=== PATIENT | female | born 1960 | race Caucasian/White ===

== ENCOUNTER 2019-09-17 09:00 | Outpatient (CLI) | payer MEDICARE, MEDICAID, SELFPAY | END 2019-09-17 09:01 | disposition home or self-care (01) | LOC: RHEOACUTE 09-24 16:46 | PROVIDERS: Visit Provider Internal Medicine Rheumatology | DX: M05.79 Rheumatoid arthritis with rheumatoid factor of multiple sites without organ or systems involvement (principal) | CPT/HCPCS: 96365; J3262 ==

== ENCOUNTER 2019-10-17 08:38 | Outpatient (CLI) | payer MEDICARE, MEDICAID, SELFPAY ==
[2019-10-17 09:03] VITALS: BP 159/90; PULSE 88; RESP 16; TEMP 36.6; O2SAT 97
[2019-10-17 10:50] VITALS: BP 176/95; PULSE 76; RESP 16; TEMP 36.6; O2SAT 98
== END 2019-10-17 08:39 | disposition home or self-care (01) ==
LOC: RHEOACUTE 08:40
PROVIDERS: Visit Provider Internal Medicine Rheumatology
DX: M05.9 Rheumatoid arthritis with rheumatoid factor, unspecified (principal); Z79.899 Other long term (current) drug therapy; Z11.59 Encounter for screening for other viral diseases; Z11.1 Encounter for screening for respiratory tuberculosis; Z72.89 Other problems related to lifestyle; E11.9 Type 2 diabetes mellitus without complications
CPT/HCPCS: 36415; 80053; 82565; 82728; 83540; 83550; 85007; 85027; 86480; 86704; 86803; 87340; 96365; J3262

== ENCOUNTER → 2019-11-08 10:56 | Outpatient (BNVA) | payer MEDICARE, MEDICAID, SELFPAY | PROVIDERS: Visit Provider Internal Medicine Rheumatology | DX: M05.9 Rheumatoid arthritis with rheumatoid factor, unspecified (principal); Z79.899 Other long term (current) drug therapy; E83.110 Hereditary hemochromatosis; E11.9 Type 2 diabetes mellitus without complications; Z79.84 Long term (current) use of oral hypoglycemic drugs | CPT/HCPCS: 99214 ==

== ENCOUNTER 2019-11-14 08:23 | Outpatient (CLI) | payer MEDICARE, MEDICAID, SELFPAY ==
--- NOTE | 2019-11-14 08:35 | XR_ITS ---
WS: [id number] XR hand RT min 3V* [id number] REASON FOR EXAM: rheumatoid arthritis FINDINGS: A small cyst is seen in the middle proximal fourth phalanx. The remaining phalanges metacarpals and carpals appear to be normal. XR/XR hand RT min 3V* [id number] IMPRESSION: Small benign cyst of the proximal middle fourth phalanx.
--- NOTE | 2019-11-14 08:35 | XR_ITS ---
WS: [id number] XR foot LT min 3V* [id number] REASON FOR EXAM: rheumatoid arthritis FINDINGS: Mild hallux rigidus changes first metatarsal phalangeal joint. A prominent calcaneal spur is seen. There is spurring seen along the anterior aspects of the distal first metatarsal. XR/XR foot LT min 3V* [id number] IMPRESSION: Calcaneal spur Hallux rigidus Spurring off the head of the first metatarsal.
--- NOTE | 2019-11-14 08:35 | XR_ITS ---
WS: [id number] XR hand LT min 3V* [id number] REASON FOR EXAM: rheumatoid arthritis FINDINGS: The phalanges, metacarpals, and carpal bones are all normal. No fractures or destructive ch anges. XR/XR hand LT min 3V* [id number] IMPRESSION: Negative left hand.
--- NOTE | 2019-11-14 08:35 | XR_ITS ---
WS: [id number] XR foot RT min 3V* [id number] REASON FOR EXAM: rheumatoid arthritis FINDINGS: Mild spurring is seen anteriorly between the cuneiforms and the first second metatarsal hea ds. There is a calcaneal spur evident. Small tailor's bunion is seen. The remaining foot was normal. XR/XR foot RT min 3V* [id number] IMPRESSION: Tailors bunion Calcaneal spur Mild degenerate spurring anterior cuneiforms first and second metatarsals.
== END 2019-11-14 08:24 | disposition home or self-care (01) ==
LOC: RADWPI 08:28
PROVIDERS: PCP Nurse Practitioner Family; Visit Provider Internal Medicine Rheumatology
DX: M05.9 Rheumatoid arthritis with rheumatoid factor, unspecified (principal); M85.641 Other cyst of bone, right hand; M21.621 Bunionette of right foot; M77.31 Calcaneal spur, right foot; M77.32 Calcaneal spur, left foot; M20.22 Hallux rigidus, left foot
CPT/HCPCS: 73130; 73630

== ENCOUNTER 2019-11-14 08:56 | Outpatient (CLI) | payer MEDICARE, MEDICAID, SELFPAY ==
[2019-11-14 09:10] VITALS: BP 164/86; PULSE 80; RESP 16; TEMP 36.6; O2SAT 98
[2019-11-14 11:07] VITALS: BP 160/94; PULSE 64; RESP 16; TEMP 36.7
== END 2019-11-14 08:57 | disposition home or self-care (01) ==
LOC: RHEOACUTE 08:56
PROVIDERS: PCP Nurse Practitioner Family; Visit Provider Internal Medicine Rheumatology
DX: M05.79 Rheumatoid arthritis with rheumatoid factor of multiple sites without organ or systems involvement (principal); M05.9 Rheumatoid arthritis with rheumatoid factor, unspecified; M85.641 Other cyst of bone, right hand; M21.621 Bunionette of right foot; M77.31 Calcaneal spur, right foot; M77.32 Calcaneal spur, left foot; M20.20 Hallux rigidus, unspecified foot
CPT/HCPCS: 73130; 73630; 96365; J3262

== ENCOUNTER 2019-12-17 08:55 | Outpatient (CLI) | payer MEDICARE, MEDICAID, SELFPAY ==
[2019-12-17 09:00] VITALS: BP 159/94; PULSE 80; RESP 16; TEMP 36.7; O2SAT 98
[2019-12-17] MEDS: diphenhydrAMINE 25 mg Capsule PO (09:49)
[2019-12-17 11:05] VITALS: BP 189/98; PULSE 76; RESP 16; TEMP 36.8; O2SAT 98
== END 2019-12-17 08:56 | disposition home or self-care (01) ==
LOC: RHEOACUTE 08:57
PROVIDERS: PCP Nurse Practitioner Family; Visit Provider Internal Medicine Rheumatology
DX: M05.79 Rheumatoid arthritis with rheumatoid factor of multiple sites without organ or systems involvement (principal)
CPT/HCPCS: 96365; 96374; J2920; J3262

== ENCOUNTER 2020-01-15 08:49 | Outpatient (CLI) | payer MEDICARE, MEDICAID, SELFPAY ==
[2020-01-15 08:59] VITALS: BP 170/91; PULSE 83; RESP 16; TEMP 36.8; O2SAT 97
[2020-01-15] MEDS: diphenhydrAMINE 25 mg Capsule PO (09:33)
[2020-01-15] MEDS: acetaminophen 325 mg Tablet 975 MG PO (09:33)
[2020-01-15 11:21] VITALS: BP 169/93; PULSE 78; RESP 16; TEMP 36.6; O2SAT 92
== END 2020-01-15 08:50 | disposition home or self-care (01) ==
LOC: RHEOACUTE 08:51
PROVIDERS: PCP Nurse Practitioner Family; Visit Provider Internal Medicine Rheumatology
DX: Z79.899 Other long term (current) drug therapy (principal); M05.79 Rheumatoid arthritis with rheumatoid factor of multiple sites without organ or systems involvement
CPT/HCPCS: 36415; 80076; 82565; 85025; 85651; 86140; 96365; 96374; J2920; J3262

== ENCOUNTER 2020-02-12 09:41 | Outpatient (CLI) | payer MEDICARE, MEDICAID, SELFPAY ==
[2020-02-12 09:50] VITALS: BP 166/82; PULSE 86; RESP 16; TEMP 36.9; O2SAT 94
[2020-02-12] MEDS: acetaminophen 325 mg Tablet 975 MG PO (10:08)
[2020-02-12] MEDS: diphenhydrAMINE 25 mg Capsule PO (10:09)
[2020-02-12 12:00] VITALS: BP 161/90; PULSE 76; RESP 16; TEMP 36.6
== END 2020-02-12 09:42 | disposition home or self-care (01) ==
LOC: RHEOACUTE 09:42
PROVIDERS: PCP Nurse Practitioner Family; Visit Provider Internal Medicine Rheumatology
DX: M05.79 Rheumatoid arthritis with rheumatoid factor of multiple sites without organ or systems involvement (principal); Z79.899 Other long term (current) drug therapy; E83.110 Hereditary hemochromatosis; R74.0 Nonspecific elevation of levels of transaminase and lactic acid dehydrogenase [LDH]; E11.9 Type 2 diabetes mellitus without complications; Z79.84 Long term (current) use of oral hypoglycemic drugs
CPT/HCPCS: 36415; 80076; 82565; 85025; 85651; 86140; 96365; 96374; 99214; J2920; J3262

== ENCOUNTER 2020-02-25 08:29 | Day surgery (SDC) | payer MEDICARE, MEDICAID, SELFPAY ==
[2020-02-22 11:55] VITALS: BMI 37.8
[2020-02-25 08:59] VITALS: BP 166/94; PULSE 85; RESP 18; TEMP 36.2; O2SAT 95
--- NOTE | 2020-02-25 09:17 | ANES.PREANE2 ---
Pre-Anesthetic Assessment Pre-Anesthetic Assessment: Height/Weight: Height 1.75 m Weight 116.12 kg Temp Pulse Resp BP Pulse Ox 97.2 F L 85 18 166/94 95 02/25/20 08:59 02/25/20 08:59 02/25/20 08:59 02/25/20 08:59 02/25/20 08:59 Preop Diagnosis: sc Proposed Procedure: Operation Date: 02/25/20 10:15 Proposed Procedures p Colonoscopy G0121 12.11(Not Applicable) - Edilberto Hdez MD Was Beta Kiara taken within 24 hours: N/A Last intake: Intake Last Liquid Date 02/24/20 Last Liquid Time 22:00 Last Solid Date 02/23/20 Last Solid Time 21:00 Social: Social History: Tobacco and No alcohol Packs per day: quit 2 yrs ago Exam: Pre-Anes Outpt Exam: alert, oriented x 3, clear to auscultation bilaterally and regular rate & rhythm Airway: Submandibular: WNL Cervical ROM: WNL MP: 2 Dentition: False (upper) History/ROS: No significant history except as noted Pulmonary: Pulmonary: None reported CV/HEM: CV/HEM: HTN : : None reported Hepatic: Hepatic: None reported GI: GI: None reported Metabolic: Metabolic: DM, Hyperlipidemia and Thyroid Musc/skel: Musc/skel: Fibromyalgia and RA Anesthetic Plan: ASA status: 3 Anesthesia: Anesthesia Evaluation and MAC Risk of > 500 ml blood loss (7ml/kg in children): No PFSH Anesthesia PFSH: Medical History (Updated 02/21/20 @ 11:40 by Edilberto Hdez MD) Diabetes mellitus Fibromyalgia Hereditary hemochromatosis High risk medication use Immunization counseling Rheumatoid arthritis with rheumatoid factor Transaminitis Surgical History History of cholecystectomy History of hysterectomy Family History Other Cancer Denies family history of Rheumatoid arthritis Lupus Social History Smoking and tobacco status: former smoker Alcohol intake: never History of recent travel: No Data Anesthesia Cardiac Studies: No Data to Display
[2020-02-25] MEDS: sodium chloride 0.9% 1,000 ML 30 ML IV (09:18)
[2020-02-25 09:19] LABS: Glucose Point of Care 188 mg/dL (70-110)
--- NOTE | 2020-02-25 09:39 | W.PM.OPSUD ---
Surgery/Procedure H&P Update DATE OF PROCEDURE: February 25, 2020 DATE H&P PERFORMED: 02/21/20 PREOP DIAGNOSIS: sc PLANNED PROCEDURE: Operation Date: 02/25/20 10:15 Proposed Procedures p Colonoscopy G0121 12.11(Not Applicable) - Edilberto Hdez MD
[2020-02-25 10:00] VITALS: BP 124/67; PULSE 72; RESP 16; TEMP 36.2; O2SAT 96
[2020-02-25 10:10] VITALS: BP 119/70; PULSE 84; RESP 18; O2SAT 99
--- NOTE | 2020-02-25 10:46 | ANE.PACU2 ---
Inpatient post-anesthesia follow up: Airway intact: Yes Vital signs: Temperature 97.1 F Pulse Rate 84 Respiratory Rate 18 Blood Pressure 119/70 Pulse Oximetry 99 Oxygen Delivery Me thod Room Air Oxygen Flow Rate 3 Fraction of Inspir ed Oxygen Hydration adequate: Yes Nausea and vomiting: No Mental status: Baseline
== END 2020-02-25 10:25 | disposition home or self-care (01) ==
PROVIDERS: PCP Nurse Practitioner Family; Visit Provider Internal Medicine
PROC: 0DJD8ZZ Inspection of Lower Intestinal Tract, Via Natural or Artificial Opening Endoscopic (ICD-10-PCS; CPT 45378; principal; 2020-02-25 10:15)
DX: Z12.11 Encounter for screening for malignant neoplasm of colon (principal); K62.1 Rectal polyp; I10 Essential (primary) hypertension; E11.9 Type 2 diabetes mellitus without complications; E78.5 Hyperlipidemia, unspecified; M79.7 Fibromyalgia; M06.9 Rheumatoid arthritis, unspecified; Z87.891 Personal history of nicotine dependence
CPT/HCPCS: 12345; 36416; 45385; 82962; J2704; J7030

== ENCOUNTER 2020-03-11 09:00 | Outpatient (CLI) | payer MEDICARE, MEDICAID, SELFPAY ==
[2020-03-11 09:05] VITALS: BP 143/89; PULSE 86; RESP 16; TEMP 36.8; O2SAT 96
[2020-03-11] MEDS: diphenhydrAMINE 25 mg Capsule PO (09:31)
[2020-03-11] MEDS: acetaminophen 325 mg Tablet 975 MG PO (09:31)
[2020-03-11 11:28] VITALS: BP 161/89; PULSE 71
== END 2020-03-11 09:01 | disposition home or self-care (01) ==
LOC: RHEOACUTE 09:01
PROVIDERS: PCP Nurse Practitioner Family; Visit Provider Internal Medicine Rheumatology
DX: M05.79 Rheumatoid arthritis with rheumatoid factor of multiple sites without organ or systems involvement (principal)
CPT/HCPCS: 96365; 96374; J2920; J3262

== ENCOUNTER 2020-04-01 09:29 | Outpatient (CLI) | payer MEDICARE, MEDICAID, SELFPAY | END 2020-04-01 09:30 | disposition home or self-care (01) | LOC: RHEOACUTE 09:30 | PROVIDERS: PCP Nurse Practitioner Family; Visit Provider Internal Medicine Rheumatology | DX: E83.110 Hereditary hemochromatosis (principal); M05.9 Rheumatoid arthritis with rheumatoid factor, unspecified; Z79.899 Other long term (current) drug therapy; E11.9 Type 2 diabetes mellitus without complications; E78.5 Hyperlipidemia, unspecified; E03.9 Hypothyroidism, unspecified | CPT/HCPCS: 36415; 80053; 80061; 82728; 83036; 83540; 83550; 84439; 84443; 85025 ==

== ENCOUNTER 2020-04-10 08:43 | Outpatient (CLI) | payer MEDICARE, MEDICAID, SELFPAY ==
[2020-04-10 09:08] VITALS: BP 161/92; PULSE 83; RESP 16; TEMP 36.8; O2SAT 97
--- NOTE | 2020-04-10 10:11 | PC.NURSE ---
Copy of recent labs given to pt per request. Reviewed current home med list and copy given to pt.
[2020-04-10 11:20] VITALS: BP 151/92; PULSE 75; RESP 16; O2SAT 96
== END 2020-04-10 08:44 | disposition home or self-care (01) ==
LOC: RHEOACUTE 08:45
PROVIDERS: PCP Nurse Practitioner Family; Visit Provider Internal Medicine Rheumatology
DX: M05.79 Rheumatoid arthritis with rheumatoid factor of multiple sites without organ or systems involvement (principal)
CPT/HCPCS: 36415; 96365; J3262

== ENCOUNTER 2020-04-22 08:37 | Outpatient (CLI) | payer MEDICARE, MEDICAID, SELFPAY ==
--- NOTE | 2020-04-23 06:44 | ONC FU_ITS ---
Dr. Lin Patient Follow-Up Note Patient: Shauna Smith Unit #: [id number]: 1960 Dicatated By: Ian Lin M.D.Date of Visit:Apr 22, 2020 Onc Med Follow-up/Prog Note Chief Complaint: Hemochromatosis. History of Present Illness: This is a 60 year-old woman with hereditary hemochromatosis. I had seen her initially in January 2014 in regard to elevated hemoglobin/hematocrit levels. Her records in [facility] included numerous blood counts between February 2011 and December 2013. All of these had shown borderline high to mildly elevated hemoglobin levels in the range of 15-16 g with hematocrits ranging from 45-48%. Her white blood cell counts had been borderline high and occasionally slightly elevated. Her platelet counts were consistently normal. Her red cell indices had been slightly macrocytic. Her subsequent evaluation included CBC showing hemoglobin 16.1 g with hematocrit 47.5%. The red cell indices were slightly macrocytic. The white blood cell count was normal at 7500 and the platelet count was normal at 166,000. Serum iron studies showed elevated transferrin saturation at 58% with ferritin level also mildly elevated at 473 ng/mL. B12 level was normal at 459 pg/mL. Erythropoietin level was normal at 11 mIU/mL. A JAK2 gene mutation study was negative. I had seen her again in September 2015. A CBC prior to that visit, from 09/26/2015, showed hemoglobin elevated at 17.3 g with hematocrit 52.3%. The red cell indices were mildly macrocytic. The white blood cell count was normal at 8200 and the platelet count was normal at 165,000. Her subsequent evaluation included a repeat erythropoietin level, which was still normal at 11 mIU/mL, and negative studies for the JAK2 V617F mutation and the JAK2 exon 12 mutation. The serum iron studies were again elevated with serum iron 268 mcg/dL and transferrin saturation 63%. The ferritin was elevated at 547 ng/mL. Comprehensive metabolic profile showed normal liver enzymes. An HFE gene analysis showed double heterozygosity for the C282Y and the H63D mutations, consistent with hereditary hemochromatosis. She began on a phlebotomy program in October 2015. Her follow-up laboratory studies on 02/24/2017 included CBC showing hemoglobin 15.2 g with hematocrit 45%. The white blood cell count was 10,000 and the platelet count was 253,000. The serum iron was down to 81 mcg/dL with transferrin saturation 17.6%. Ferritin was down to 13.5 ng/mL compared to 547 ng/mL in September 2015. At that point I did have her stop phlebotomies. As of her follow-up visit on 03/21/2018 her transferrin saturation was back up to 52.6% with serum ferritin 67 ng/mL, and she then restarted phlebotomies. I had seen her again in March. At that point she was having increasing difficulty getting her phlebotomies due to poor peripheral venous access. As such, we were then able to get her approved for a trial of therapy with deferasirox, which she started on 06/15/2018 at 720 mg daily. Her medical history is otherwise significant for longstanding rheumatoid arthritis. She has been on treatment with methotrexate and monthly infusions of Actemra. Her other medical illnesses include fibromyalgia, degenerative disease of the spine, hypothyroidism, and type 2 diabetes. She has a history of smoking for 30 years, although less than a pack of cigarettes daily. She quit smoking in November 2017. INTERIM HISTORY: As of 09/05/2018 her transferrin saturation had decreased to 37.9% and her ferritin level was down to 23.0 ng/mL. Her deferasirox dosage was reduced to 360 mg every other day due to GI intolerance. As of her follow-up visit in March 2019 the ferritin was in target range at 27.0 ng/mL but with serum iron studies showing transferrin saturation slightly elevated at 53%. She continued deferasirox at the same dosage. She is seen for a scheduled visit. She has been feeling good generally. She says her energy could be better, but she has normal activity. ECOG score is 0. Her appetite is good. Her weight is stable. She has no fever, night sweats, or hot flashes. She has no shortness of breath, cough, or chest pain. She reports having occasional pain in the right upper quadrant area. She has no other GI or complaints. She has just mild aches and pains here and there. She does not complain of headache or dizziness. She has no focal neurologic symptoms. Medications: Actemra Intravenous q 30 days, Aspirin 1 (81 mg) Tablet Oral daily, Cymbalta 1 Capsule (of 30 mg) Capsule Delayed Release Particles Oral daily, Folic Acid 1 (1 mg) Tablet Oral daily, Jadenu 1 Tablet (of 360 mg) Oral on Every Other Day, Januvia 1 Tablet Oral daily, Levothyroxine Sodium 1 (125 mcg) Tablet Oral daily, Lovastatin 1 (20 mg) Tablet Oral daily, Lovastatin 1 Tablet (of 10 mg) Oral daily, MetFORMIN HCl 2 Tablet (of 500 mg) Oral b.i.d., TraZODone HCl 1 Tablet (of 50 mg) Oral at bedtime Allergies: Penicillins Review of Systems: Constitutional - She has good energy and activity tolerance. Appetite is good and weight is stable. No fever, night sweats, or hot flashes. ECOG score is 0, ENMT - She has a little sinus congestion/drainage, presumed to be allergy related. No mouth sores. No sore throat or difficulty swallowing, Hematologic/Lymphatic - No abnormal bruising or bleeding, Respiratory - No shortness of breath. No cough. No pleuritic pain or hemoptysis, Cardiovascular - No angina pain. No palpitations, Gastrointestinal - No nausea or vomiting. No heartburn or acid reflux. She has occasional pain in the right upper quadrant area. No diarrhea or constipation. No blood in the stool or black stools, Genitourinary (F) - No dysuria or hematuria. No urinary frequency. No urgency or incontinence, Musculoskeletal - She has just mild aching in the joints, Integumentary - No skin rash, Neurologic - No headache or dizziness. No numbness or tingling. No other focal neurologic symptoms, Psychiatric - No anxiety or depression. No insomnia. Vital Signs: Performed on Apr 22, 2020 08:47 Height - 69.00 in Weight - 256.4 lbs (HIGH) BSA - 2.30 sq.m BMI - 37.86 (HIGH) Temperature - 97.8 F (LOW) Pulse - 82 /min Respiration - 18 /min BP - 147/104 mm(hg) (HIGH) O2 Sat - 99 % Pain - 9 Physical Examination: Constitutional - She looks good generally, Eyes - Sclerae nonicteric. Conjunctivae clear, ENMT - No lesions noted in the oral cavity, Hematologic/Lymphatic - No cervical, clavicular, or axillary adenopathy, Respiratory - Lungs are clear with good air movement bilaterally, Cardiovascular - Heart rhythm is regular. There is no murmur, gallop, or rub noted, Abdomen - Soft. There is mild tenderness in the right upper quadrant. Liver is not palpable, but it appears enlarged by percussion at 3-4 cm below the costal margin. Spleen is not enlarged. There is no abdominal mass or ascites noted and there is no inguinal adenopathy, Extremities - No edema. Pedal pulses are palpable bilaterally, Integumentary - No rashes. No suspicious skin lesions noted, Neurologic - No focal neurologic deficits noted. Lab/Imaging: Her laboratory studies from 04/01/2020 included CBC showing hemoglobin 13.7 g, white blood cell count 4600, and platelet count 191,000. Comprehensive metabolic profile showed normal renal function with BUN 12 and creatinine 0.6 mg/dL. SGOT was slightly elevated at 48/32 U/L with SGPT 85/33 U/L. The alkaline phosphatase and bilirubin levels were normal. The serum iron studies show transferrin saturation 25.6% and the ferritin level was 39 ng/mL. Impression: 1. Patient presented with elevated transferrin saturation and ferritin levels, and she was found to be doubly heterozygous for the C282Y and the H63D mutations, consistent with hereditary hemochromatosis. 2. She has mildly elevated hemoglobin/hematocrit levels. Etiology is uncertain. With her smoking history she may have a component of secondary polycythemia, but this may just be related to hemochromatosis. 3. She has red blood cell macrocytosis which is probably related to the methotrexate. Her other medical illnesses include: 4. Seropositive rheumatoid arthritis. 5. Fibromyalgia syndrome. 6. Degenerative disease of the spine. 7. Compensated hypothyroidism. 8. Vitamin D deficiency. 9. Mild diabetes. 10. Nicotine dependence (cigarettes). She began phlebotomies for the hemochromatosis in October 2015. As of January 2017 her ferritin level and transferrin saturation were both low, and I had her stop phlebotomies. At her follow-up visit in February 2018 her transferrin saturation was back up over 50%. She then restarted phlebotomies. However, by March 2018 she was having increasing difficulty with phlebotomy due to poor peripheral venous access. On 06/15/2018 she began a trial of therapy with deferasirox at 720 mg daily. She was unable to tolerate it at that dosage due to GI side effects. Ultimately she was able to tolerate it adequately at a reduced dosage of 360 mg every other day. With that her transferrin saturation and ferritin levels had come down to target range. As of 04/01/2020 her transferrin saturation and ferritin levels had remained in target range. Her liver enzymes, though, were noted to be mildly elevated, and she has been having intermittent right upper quadrant abdominal pain. This would most likely be due to nonalcoholic hepatic steatosis, as a prior gallbladder ultrasound from 2013 had reported hepatomegaly with diffuse fatty infiltration. Plan: She will continue deferasirox 360 mg every other day. She will be scheduled for CT abdomen/pelvis. She will have further evaluation as indicated. I will otherwise just plan to monitor her lab studies every 3 months and see her for a follow-up visit again in 1 year. Signed By: Ian Lin M.D. <<Signature on File>>
== END 2020-04-22 08:38 | disposition home or self-care (01) ==
LOC: ONCMED 08:39
PROVIDERS: PCP Nurse Practitioner Family; Visit Provider Internal Medicine Medical Oncology
DX: E83.110 Hereditary hemochromatosis (principal); K76.0 Fatty (change of) liver, not elsewhere classified; M05.9 Rheumatoid arthritis with rheumatoid factor, unspecified; M79.7 Fibromyalgia; M47.9 Spondylosis, unspecified; E03.9 Hypothyroidism, unspecified; E55.9 Vitamin D deficiency, unspecified; E11.9 Type 2 diabetes mellitus without complications; F17.210 Nicotine dependence, cigarettes, uncomplicated; Z79.899 Other long term (current) drug therapy
CPT/HCPCS: G0463

== ENCOUNTER 2020-04-29 12:41 | Outpatient (CLI) | payer MEDICARE, MEDICAID, SELFPAY ==
--- NOTE | 2020-04-29 12:52 | CT_ITS ---
WS: [id number] CT ABDOMEN PELVIS TECHNIQUE: Contrast-enhanced CT of the abdomen and pelvis with coronal and sagittal reformatted image s. CLINICAL INFORMATION: RUQ ABD PAIN, ELEVATED LIVER ENZYMES COMPARISON: CT AP 08/2013 DLP: 1213.[address] scans at [facility] use at least one of these dose optimization techniques: automat ed exposure control; mA and/or kV adjustment per patient size (includes targeted exams where dose is matched to clinical indication); or iterative reconstruction. FINDINGS: Mild hepatomegaly. Diffuse fatty infiltration of the liver. Cholecystectomy clips. Normal spleen. Sma ll esophageal hiatal hernia. Lung bases are well aerated. Normal pancreas. Adrenal glands are normal. Small left adrenal adenoma measuring 15 mm. Normal renal parenchymal enhancement. No hydronephrosis. Ureters are decompressed. Normal caliber abdominal aorta. Tiny fat-containing umbilical hernia. Sigmoid diverticulosis. No evidence of acute diverticulitis. Normal lumbar spine. Impression CT/CT abdomen pelvis w con* [id number] IMPRESSION: 1. Mild hepatomegaly with diffuse fatty infiltration. Correlation with liver f unction tests. Right hepatic lobe measures 21 cm craniocaudal. 2. Small esophageal hiatal hernia. 3. Sigmoid diverticulosis. No evidence of acute diverticulitis. 4. No free fluid in the abdomen or pelvis. 5. Tiny fat-containing umbilical hernia. 6. Small left adrenal adenoma measuring 15 mm.
[2020-04-29] MEDS: iohexol 300 mg/mL 50 mL Btl PO (13:42)
[2020-04-29] MEDS: iohexol 300 mg/mL 100 mL Btl IV (14:38)
== END 2020-04-29 12:42 | disposition home or self-care (01) ==
LOC: RADWPI 12:43
PROVIDERS: PCP Nurse Practitioner Family; Visit Provider Internal Medicine Medical Oncology
DX: E83.119 Hemochromatosis, unspecified (principal); R74.8 Abnormal levels of other serum enzymes; R16.0 Hepatomegaly, not elsewhere classified; K76.0 Fatty (change of) liver, not elsewhere classified; K44.9 Diaphragmatic hernia without obstruction or gangrene; K57.30 Diverticulosis of large intestine without perforation or abscess without bleeding; K42.9 Umbilical hernia without obstruction or gangrene; D35.02 Benign neoplasm of left adrenal gland
CPT/HCPCS: 74177; Q9967

== ENCOUNTER 2020-05-08 08:34 | Outpatient (CLI) | payer MEDICARE, MEDICAID, SELFPAY ==
[2020-05-08 08:59] VITALS: BP 138/87; PULSE 79; RESP 16; TEMP 36.6; O2SAT 97
[2020-05-08] MEDS: acetaminophen 325 mg Tablet 975 MG PO (09:20)
[2020-05-08] MEDS: diphenhydrAMINE 25 mg Capsule (09:50)
[2020-05-08 09:51] VITALS: BMI 37.8
[2020-05-08 11:48] VITALS: BP 177/95; PULSE 79; RESP 16; O2SAT 96
== END 2020-05-08 08:35 | disposition home or self-care (01) ==
LOC: RHEOACUTE 08:38
PROVIDERS: PCP Nurse Practitioner Family; Visit Provider Internal Medicine Rheumatology
DX: M05.79 Rheumatoid arthritis with rheumatoid factor of multiple sites without organ or systems involvement (principal)
CPT/HCPCS: 96365; 96375; J2920; J3262

== ENCOUNTER 2020-06-05 08:40 | Outpatient (CLI) | payer MEDICARE, MEDICAID, SELFPAY ==
[2020-06-05 08:55] VITALS: BP 144/85; PULSE 76; RESP 16; TEMP 36.5; O2SAT 96
[2020-06-05 09:00] VITALS: BMI 38.2
[2020-06-05] MEDS: diphenhydrAMINE 25 mg Capsule PO (09:18)
[2020-06-05] MEDS: acetaminophen 325 mg Tablet 975 MG PO (09:18)
--- NOTE | 2020-06-05 10:09 | PC.NURSE ---
0900 Discussed with pt infusions affect immune system and makes her more at risk for infection. Pt verbalized that she was aware and understood.
[2020-06-05 10:54] VITALS: BP 140/84; PULSE 80; RESP 16
== END 2020-06-05 08:41 | disposition home or self-care (01) ==
LOC: RHEOACUTE 08:43
PROVIDERS: PCP Nurse Practitioner Family; Visit Provider Internal Medicine Rheumatology
DX: M05.79 Rheumatoid arthritis with rheumatoid factor of multiple sites without organ or systems involvement (principal)
CPT/HCPCS: 96365; 96375; J2920; J3262

== ENCOUNTER → 2020-06-12 09:38 | Outpatient (BNVA) | payer MEDICARE, MEDICAID, SELFPAY | PROVIDERS: PCP Nurse Practitioner Family | DX: Z23 Encounter for immunization (principal); Z79.899 Other long term (current) drug therapy | CPT/HCPCS: 90471; 96372 ==

== ENCOUNTER 2020-07-09 09:26 | Outpatient (CLI) | payer MEDICARE, MEDICAID, SELFPAY ==
[2020-07-09 10:00] VITALS: BP 180/80; PULSE 87; RESP 18; TEMP 36.4; O2SAT 97
[2020-07-09] MEDS: diphenhydrAMINE 50 mg Capsule 25 MG PO (10:33)
[2020-07-09] MEDS: acetaminophen 325 mg Tablet 975 MG PO (10:34)
[2020-07-09 10:45] VITALS: BMI 37.9
[2020-07-09] MEDS: acetaminophen 500 mg Tablet 1000 MG (10:45)
[2020-07-09] MEDS: diphenhydrAMINE 25 mg Capsule (10:45)
--- NOTE | 2020-07-09 15:06 | PC.NURSE ---
1100 labs obtained with IV start.
== END 2020-07-09 09:27 | disposition home or self-care (01) ==
LOC: RHEOACUTE 09:27
PROVIDERS: PCP Nurse Practitioner Family; Visit Provider Internal Medicine Rheumatology
DX: M05.79 Rheumatoid arthritis with rheumatoid factor of multiple sites without organ or systems involvement (principal); E83.110 Hereditary hemochromatosis; Z79.899 Other long term (current) drug therapy; E11.9 Type 2 diabetes mellitus without complications; R74.01 Elevation of levels of liver transaminase levels; Z79.84 Long term (current) use of oral hypoglycemic drugs
CPT/HCPCS: 80076; 82565; 85025; 85651; 86140; 96365; 96375; 99214; J2920; J3262; Q0163

== ENCOUNTER 2020-08-07 09:03 | Outpatient (CLI) | payer MEDICARE, MEDICAID, SELFPAY ==
[2020-08-07 09:00] VITALS: BP 145/84; PULSE 81; RESP 16; TEMP 36.2; O2SAT 98
[2020-08-07] MEDS: acetaminophen 325 mg Tablet 975 MG PO (09:41)
[2020-08-07] MEDS: diphenhydrAMINE 25 mg Capsule PO (09:42)
--- NOTE | 2020-08-07 10:33 | PC.NURSE ---
0900 Pt had cyst removed 08/06/20. States Dr. Carpio aware of infusion today. Dr. Castillo informed. Ok to proceed with infusion.
--- NOTE | 2020-08-07 10:40 | PC.NURSE ---
0920 IV started. Labs obtained.
[2020-08-07 11:32] VITALS: BP 177/84; PULSE 78; RESP 16; O2SAT 98
== END 2020-08-07 09:04 | disposition home or self-care (01) ==
LOC: RHEOACUTE 09:03
PROVIDERS: PCP Nurse Practitioner Family; Visit Provider Internal Medicine Rheumatology
DX: M05.79 Rheumatoid arthritis with rheumatoid factor of multiple sites without organ or systems involvement (principal); Z51.81 Encounter for therapeutic drug level monitoring; E03.9 Hypothyroidism, unspecified
CPT/HCPCS: 83036; 84439; 84443; 96365; 96375; J2920; J3262

== ENCOUNTER 2020-09-04 08:54 | Outpatient (CLI) | payer MEDICARE, MEDICAID, SELFPAY ==
[2020-09-04 09:00] VITALS: BP 146/96; PULSE 88; RESP 16; TEMP 36.5; O2SAT 97
[2020-09-04] MEDS: diphenhydrAMINE 25 mg Capsule PO (09:27)
[2020-09-04] MEDS: acetaminophen 325 mg Tablet 975 MG PO (09:27)
[2020-09-04 09:58] VITALS: BMI 38.2
[2020-09-04 11:15] VITALS: BP 156/90; PULSE 76; RESP 16; O2SAT 97
== END 2020-09-04 08:55 | disposition home or self-care (01) ==
LOC: RHEOACUTE 08:58
PROVIDERS: PCP Nurse Practitioner Family; Visit Provider Internal Medicine Rheumatology
DX: M05.79 Rheumatoid arthritis with rheumatoid factor of multiple sites without organ or systems involvement (principal)
CPT/HCPCS: 96365; 96375; J2920; J3262

== ENCOUNTER 2020-09-05 07:54 | Outpatient (CLI) | payer MEDICARE, MEDICAID, SELFPAY ==
--- NOTE | 2020-09-05 08:01 | MM_ITS ---
WS: [id number] BILATERAL DIGITAL SCREENING MAMMOGRAM WITH CAD CLINICAL INFORMATION: SCREENING HISTORY: Screening mammogram. No current complaints. COMPARISON: None. TECHNIQUE: Bilateral CC and MLO views. FINDINGS: Fatty-replaced breasts bilaterally. No suspicious focal mass, asymmetry, calcifications, or architecture intern ural distortion. No evidence of malignancy. MM/[place] [id number] IMPRESSION: BI-RADS: 1-Negative FOLLOW UP: 1 Year Follow-up Recommend return to annual screening mammography.
--- NOTE | 2020-09-05 08:39 | CT_ITS ---
WS: [id number] LDCT LUNG CANCER SCREENING HISTORY: HX OF TOBACCO USE TECHNIQUE: Axial imaging performed from the apices to 1 cm below the costophrenic angles. Coronal and sagittal reformats are submitted with axial MIP series. All CT scans at [facility] use at least one of these dose optimization techniques: automated exposure control; mA and/or kV adjustment per patient size (includes targeted exams where dose is matched to clinical indication); or iterativ e reconstruction. DLP: 50.23 mGy.cm DIvol: 1.58 mGy COMPARISON: None available. Diagnostic quality: Satisfactory Lung Nodules: 7 mm subpleural nodule in the RIGHT upper lobe on image 59 of series 3. Solid nodule wi th no spiculation. No additional nodules are identified. Lungs: No abnormality. Heart: Normal size. Moderate coronary artery calcification. Other findings: None. CT/CT lung screening [id number] IMPRESSION: LUNG-RADS: 3S-Probably Benign with Significant Findings FOLLOW UP: 6 Month LDCT OTHER FINDINGS (S MODIFIER): Moderate coronary artery atherosclerosis. Evaluati on by cardiology may be appropriate at this time.
== END 2020-09-05 07:55 | disposition home or self-care (01) ==
PROVIDERS: PCP Nurse Practitioner Family; Visit Provider Family Medicine
DX: Z12.31 Encounter for screening mammogram for malignant neoplasm of breast (principal); Z12.2 Encounter for screening for malignant neoplasm of respiratory organs; Z87.891 Personal history of nicotine dependence; I25.10 Atherosclerotic heart disease of native coronary artery without angina pectoris
CPT/HCPCS: 71271; 77067

== ENCOUNTER 2020-10-02 08:45 | Outpatient (CLI) | payer MEDICARE, MEDICAID, SELFPAY ==
[2020-10-02 09:30] VITALS: BP 141/87; BP 146/82; PULSE 72; PULSE 76; RESP 18; TEMP 36.1; TEMP 36.5; O2SAT 96; O2SAT 97
[2020-10-02] MEDS: acetaminophen 325 mg Tablet 975 MG PO (09:30)
[2020-10-02] MEDS: diphenhydrAMINE 25 mg Capsule PO (09:30)
[2020-10-02 09:53] LABS: Basophils # 0.1 10^3/uL (0.0-0.1); Basophils % 1.4 %; Eosinophils # 0.4 10^3/uL (0.0-0.8); Eosinophils % 6.2 %; Hematocrit 41.4 % (37.0-47.0); Hemoglobin 13.9 g/dL (11.5-15.3); Lymphocytes # 1.7 10^3/uL (0.8-4.8); Lymphocytes % 29.6 %; Mean Corpuscular HGB Conc 33.6 g/dL (30.0-36.0); Mean Corpuscular Volume 95.2 fL (81-99); Mean Platelet Volume 10.1 fL (7.4-10.4); Monocytes # 0.6 10^3/uL (0.2-0.9); Monocytes % 11.2 %; Neutrophils # 2.88 10^3/uL (1.8-7.7); Neutrophils % 51.1 %; Nucleated Red Blood Cells % 0 %; Platelet Count 184 10^3/cmm (130-400); Red Blood Count 4.35 10^6/uL (4.1-5.3); Red Cell Distribution Width 12.1 % (12.1-15.1); White Blood Count 5.6 10^3/uL (4.0-10.0)
[2020-10-02 09:55] LABS: Alanine Aminotransferase 63 U/L (0-33); Aspartate Amino Transferase 34 U/L (0-32); C Reactive Protein 0.3 mg/L (0.0-4.9)
[2020-10-02 10:45] VITALS: BP 141/87; PULSE 72; RESP 18; TEMP 36.1; O2SAT 96
[2020-10-02 10:45] LABS: Erythrocyte Sedimentation Rate 7 mm/hr (0-15)
== END 2020-10-02 08:46 | disposition home or self-care (01) ==
LOC: ONCMED 08:48
PROVIDERS: Internal Medicine Rheumatology; PCP Nurse Practitioner Family; Visit Provider Internal Medicine Medical Oncology
DX: M05.79 Rheumatoid arthritis with rheumatoid factor of multiple sites without organ or systems involvement; E83.110 Hereditary hemochromatosis; D75.1 Secondary polycythemia; M79.7 Fibromyalgia; E03.9 Hypothyroidism, unspecified; E11.9 Type 2 diabetes mellitus without complications; F17.210 Nicotine dependence, cigarettes, uncomplicated
CPT/HCPCS: 82565; 84450; 84460; 85025; 85651; 86140; 96365; 96375; J2920; J3262

== ENCOUNTER 2020-10-22 06:54 | Outpatient (CLI) | payer MEDICARE, MEDICAID, SELFPAY ==
[2020-10-22 06:57] VITALS: BMI 36.8
--- NOTE | 2020-10-22 07:13 | NMCV_ITS ---
NM mitul perf SPECT r/s* [id number] Shauna Smith Age: 60 Gender: F : 1960 Exam Date: 10/22/2020 08:34 Ordering Phys: Brian French MD ([email or web address]) Technologist: JAY Ervin Exam Location: [facility] Indications: CAD STRESS TEST Please see separate stress test report in [facility] for full findings IMAGE PROTOCOL Rest/Stress 1 Exercise Day Radiopharmaceutical Dose (mCi) Administration Site Administered by Rest: Tc-99m 10.6 IV JAY Mcclure Sestamibi Stress:Tc-99m 32.1 IV JAY Mcclure Sestamibi Rest: 22-Oct-2020 60 Discovery 630 Stress: 22-Oct-2020 15 Discovery 630 Radiopharmaceutical was injected at 91 % maximum heart rate. Images obtained in supine and prone position. SPECT RESULTS Technical Quality: Excellent Raw Data Analysis: Breast attenuation Image Corrections: No attenuation or motion correction applied Summed Stress Score: 0 Summed Rest Score: 0 Summed Difference Score: 0 PERFUSION FINDINGS Small area of reduced pressure uptake noted in mid anterior wall on the rest images which improved significantly over stress images suggestive of artifact. Medium-sized area of basal inferior wall on the rest images which improved slightly over the stress images suggestive of artifact FUNCTIONAL RESULTS (calculated via Gated SPECT) Stress Image LV EF (%): 72 Stress EDV (mL):81 TID: 0 Stress ESV (mL):23 Rest Image LV EF (%): 72 FUNCTIONAL FINDINGS: There is normal left ventricular systolic function. IMPRESSIONS Myocardial perfusion imaging is normal low probability for obstructive coronary disease. EKG segment will be documented separately. Brian French MD (Electronically Signed) Final Date: 22 October 2020 19:36 S
--- NOTE | 2020-10-22 07:13 | ECG_ITS ---
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 Baseline heart rate was [89] beats per minute. Baseline blood pressure was [135/81] millimeters of mercury. Target heart rate was 158 beats per minute. Maximum heart rate achieved was 159, which was 100 % of the target heart rate. Maximum blood pressure was 207/90 millimeters of mercury. Total exercise time was 4-minute. Maximum METs achieved was 7.0, maximum VO2 was 24.5. The reason for ending the test was maximum effort. The patient complained of [] during the stress test, which then resolved at the end of the test. ELECTROCARDIOGRAM: BASELINE: Showed sinus rhythm, normal axis, non specific ST-T changes at the baseline noted. [] EXERCISE: At the peak exercise level, [] No significant ST-T changes more than what is present at the baseline noted. [] RECOVERY: During the recovery period, heart rate dropped appropriately. No significant ST-T changes in the recovery suggestive of ischemia noted. [] CONCLUSION: 1. Exercise capacity [poor]. 2. Heart rate response was tachycardic. 3. Blood pressure response was [appropriate]. 4. Symptoms not suggestive of ischemia. 5. Electrocardiogram portion of the stress test was equivocal ischemia. 6. Nuclear scan will be documented separately. Please note that due to poor exercise capacity and under achievement of METs specificity and sensitivity of EKG portion of stress test will be low Electronically Signed On 10-28-2020 17:01:39 METAL FORGER'S ASSISTANT by SHYAM FRENCH [email or web address]
[2020-10-22 09:27] VITALS: BP 155/83; PULSE 95
== END 2020-10-22 06:55 | disposition home or self-care (01) ==
LOC: CDL 06:55
PROVIDERS: PCP Nurse Practitioner Family; Visit Provider Internal Medicine Cardiovascular Disease
DX: I25.10 Atherosclerotic heart disease of native coronary artery without angina pectoris (principal)
CPT/HCPCS: 78452; 93017; A9500

== ENCOUNTER 2020-10-30 08:37 | Outpatient (CLI) | payer MEDICARE, MEDICAID, SELFPAY ==
[2020-10-30 09:00] VITALS: BP 135/82; PULSE 75; RESP 16; TEMP 36.6; O2SAT 97
[2020-10-30] MEDS: acetaminophen 325 mg Tablet 975 MG PO (09:03)
[2020-10-30] MEDS: diphenhydrAMINE 25 mg Capsule PO (09:03)
[2020-10-30 10:57] VITALS: BP 157/89; PULSE 76; RESP 16; TEMP 36.3; O2SAT 98
== END 2020-10-30 08:38 | disposition home or self-care (01) ==
LOC: ONCMED 08:40
PROVIDERS: PCP Nurse Practitioner Family; Visit Provider Internal Medicine Rheumatology
DX: M05.79 Rheumatoid arthritis with rheumatoid factor of multiple sites without organ or systems involvement (principal)
CPT/HCPCS: 96365; 96366; 96375; J2920; J3262

== ENCOUNTER 2020-11-27 08:48 | Outpatient (CLI) | payer MEDICARE, MEDICAID, SELFPAY ==
[2020-11-27] MEDS: acetaminophen 325 mg Tablet 650 MG PO (09:10)
[2020-11-27] MEDS: sodium chloride 0.9% 250 ML 75 ML IV (09:10)
[2020-11-27] MEDS: diphenhydrAMINE 50 mg/mL SDV 1mL 25 MG IV (09:12)
[2020-11-27 09:34] VITALS: BP 138/86; PULSE 74; RESP 16; TEMP 36
[2020-11-27 09:51] LABS: Basophils # 0.1 10^3/uL (0.0-0.1); Basophils % 0.8 %; Eosinophils # 0.3 10^3/uL (0.0-0.8); Eosinophils % 5.1 %; Hematocrit 41.1 % (37.0-47.0); Hemoglobin 13.8 g/dL (11.5-15.3); Lymphocytes # 1.5 10^3/uL (0.8-4.8); Lymphocytes % 25.1 %; Mean Corpuscular HGB Conc 33.6 g/dL (30.0-36.0); Mean Corpuscular Hemoglobin 32.4 pg (28.0-34.0); Mean Corpuscular Volume 96.5 fL (81-99); Mean Platelet Volume 10.4 fL (7.4-10.4); Monocytes # 0.7 10^3/uL (0.2-0.9); Monocytes % 11.2 %; Neutrophils # 3.48 10^3/uL (1.8-7.7); Neutrophils % 57.5 %; Nucleated Red Blood Cells % 0 %; Platelet Count 183 10^3/cmm (130-400); Red Blood Count 4.26 10^6/uL (4.1-5.3); Red Cell Distribution Width 11.9 % (12.1-15.1); White Blood Count 6.1 10^3/uL (4.0-10.0)
[2020-11-27 10:04] LABS: Alanine Aminotransferase 60 U/L (0-33); Albumin Level 4.3 g/dL (3.5-5.2); Alkaline Phosphatase 49 IU/L (35-105); Aspartate Amino Transferase 35 U/L (0-32); C Reactive Protein 0.3 mg/L (0.0-4.9); Globulin 2.1 g/dL (1.3-4.6); Total Bilirubin 0.6 mg/dL (0.15-1.2); Total Protein 6.4 g/dL (6.6-8.7)
[2020-11-27 10:44] VITALS: BP 151/82; PULSE 74; RESP 16; TEMP 36.4; O2SAT 97
== END 2020-11-27 08:49 | disposition home or self-care (01) ==
PROVIDERS: PCP Nurse Practitioner Family; Visit Provider Internal Medicine Rheumatology
DX: M05.79 Rheumatoid arthritis with rheumatoid factor of multiple sites without organ or systems involvement (principal)
CPT/HCPCS: 80076; 82565; 85025; 86140; 96365; 96375; J1200; J2920; J3262; J7050

== ENCOUNTER 2020-12-25 08:53 | Outpatient (CLI) | payer MEDICARE, MEDICAID, SELFPAY ==
[2020-12-25 09:10] VITALS: BP 154/88; PULSE 88; RESP 16; TEMP 36.1; O2SAT 97
[2020-12-25] MEDS: sodium chloride 0.9% 250 ML 999 ML IV (09:20)
[2020-12-25] MEDS: acetaminophen 325 mg Tablet 650 MG PO (09:20)
[2020-12-25] MEDS: diphenhydrAMINE 50 mg/mL SDV 1mL 25 MG IVP (09:27)
[2020-12-25 09:51] LABS: Basophils # 0.1 10^3/uL (0.0-0.1); Basophils % 1.1 %; Eosinophils # 0.3 10^3/uL (0.0-0.8); Eosinophils % 4.6 %; Hematocrit 39.8 % (37.0-47.0); Hemoglobin 13.4 g/dL (11.5-15.3); Lymphocytes # 1.8 10^3/uL (0.8-4.8); Lymphocytes % 28.8 %; Mean Corpuscular HGB Conc 33.7 g/dL (30.0-36.0); Mean Corpuscular Hemoglobin 32.4 pg (28.0-34.0); Mean Corpuscular Volume 96.1 fL (81-99); Mean Platelet Volume 10.5 fL (7.4-10.4); Monocytes # 0.7 10^3/uL (0.2-0.9); Monocytes % 11.5 %; Neutrophils # 3.41 10^3/uL (1.8-7.7); Neutrophils % 53.5 %; Nucleated Red Blood Cells % 0 %; Platelet Count 173 10^3/cmm (130-400); Red Blood Count 4.14 10^6/uL (4.1-5.3); Red Cell Distribution Width 11.9 % (12.1-15.1); White Blood Count 6.4 10^3/uL (4.0-10.0)
[2020-12-25 10:22] LABS: Albumin Level 4.1 g/dL (3.5-5.2)
[2020-12-25 10:30] VITALS: BP 134/79; PULSE 80; RESP 16; TEMP 36.6; O2SAT 97
[2020-12-25 10:32] LABS: Estmated Average Glucose 189; Hemoglobin A1C 8.2 % (4.0-6.0)
[2020-12-25 11:15] LABS: Alanine Aminotransferase 61 U/L (0-33); Alkaline Phosphatase 49 IU/L (35-105); Aspartate Amino Transferase 36 U/L (0-32); Globulin 2.2 g/dL (1.3-4.6); Total Bilirubin 0.4 mg/dL (0.15-1.2); Total Protein 6.3 g/dL (6.6-8.7)
== END 2020-12-25 08:54 | disposition home or self-care (01) ==
PROVIDERS: Family Medicine; PCP Nurse Practitioner Family; Visit Provider Internal Medicine Rheumatology
DX: M05.79 Rheumatoid arthritis with rheumatoid factor of multiple sites without organ or systems involvement (principal); E11.9 Type 2 diabetes mellitus without complications
CPT/HCPCS: 80076; 83036; 85025; 96365; 96375; J1200; J2920; J3262; J7050

== ENCOUNTER 2021-01-22 08:56 | Outpatient (CLI) | payer MEDICARE, MEDICAID, SELFPAY ==
[2021-01-22] MEDS: sodium chloride 0.9% 250 ML IV (09:54)
[2021-01-22] MEDS: acetaminophen 325 mg Tablet 650 MG PO (10:05)
[2021-01-22 10:06] VITALS: BP 141/84; PULSE 78; RESP 16; TEMP 36.6; O2SAT 96
[2021-01-22] MEDS: diphenhydrAMINE 50 mg/mL SDV 1mL 25 MG IVP (10:11)
[2021-01-22 10:39] LABS: Estmated Average Glucose 186; Hemoglobin A1C 8.1 % (4.0-6.0)
[2021-01-22 10:48] LABS: Anion Gap 15.4 (5-19); Blood Urea Nitrogen 10 mg/dL (8-23); Calcium 8.7 mg/dL (8.5-10.5); Carbon Dioxide 24 mmol/L (22-29); Chloride 102 mmol/L (98-107); Glucose 193 mg/dL (65-115); Osmolality Calculated 288 mOsm/kg (285-295); Potassium 4.4 mmol/L (3.5-5.1); Sodium 137 mmol/L (136-145); Thyroid Stimulating Hormone 0.37 uIU/mL (0.27-4.20)
[2021-01-22 11:41] VITALS: BP 168/91; PULSE 75; RESP 18; TEMP 36.6; O2SAT 96
== END 2021-01-22 08:57 | disposition home or self-care (01) ==
PROVIDERS: PCP Nurse Practitioner Family; Visit Provider Internal Medicine Rheumatology
DX: M05.79 Rheumatoid arthritis with rheumatoid factor of multiple sites without organ or systems involvement (principal); E11.9 Type 2 diabetes mellitus without complications
CPT/HCPCS: 80048; 83036; 84443; 96365; 96375; J1200; J2920; J3262; J7050

== ENCOUNTER 2021-02-18 08:42 | Outpatient (CLI) | payer MEDICARE, MEDICAID, SELFPAY ==
[2021-02-18 08:55] VITALS: BP 135/76; PULSE 85; RESP 18; TEMP 35.9; O2SAT 97
[2021-02-18] MEDS: sodium chloride 0.9% 250 ML 75 ML IV (09:22)
[2021-02-18] MEDS: acetaminophen 325 mg Tablet 650 MG PO (09:23)
[2021-02-18] MEDS: diphenhydrAMINE 50 mg/mL SDV 1mL 25 MG IVP (09:25)
[2021-02-18 10:43] VITALS: BP 123/67; PULSE 77; RESP 18; TEMP 36.5; O2SAT 96
== END 2021-02-18 08:43 | disposition home or self-care (01) ==
PROVIDERS: PCP Nurse Practitioner Family; Referring Provider Internal Medicine Rheumatology; Visit Provider Internal Medicine Rheumatology
DX: M05.79 Rheumatoid arthritis with rheumatoid factor of multiple sites without organ or systems involvement (principal)
CPT/HCPCS: 96365; 96375; J1200; J2920; J3262; J7050

== ENCOUNTER 2021-03-06 07:45 | Outpatient (CLI) | payer MEDICARE, MEDICAID, SELFPAY ==
--- NOTE | 2021-03-06 07:52 | CT_ITS ---
WS: [id number] CT CHEST WITHOUT INTRAVENOUS CONTRAST HISTORY: 7 MM NODULE R UPPER LOBE TECHNIQUE: Contiguous 5 mm axial imaging performed on the thorax. Coronal and sagittal reformats are submitted. All CT scans at [facility] use at least one of these dose optimization techniq ues: automated exposure control; mA and/or kV adjustment per patient size (includes targeted exams wh ere dose is matched to clinical indication); or iterative reconstruction. CONTRAST: None DLP: 850.08 mGy.cm COMPARISON: 09/05/2020 Lungs and central airway: Pulmonary hyperexpansion and changes of emphysema. Subpleural nodule in the posterior RIGHT upper lobe image 17 of series 3 is unchanged to 7 mm. There is an additional subpleu ral nodule at the RIGHT apex measuring 3 mm. Pleura: Normal. No pleural effusion. Heart and pericardium: Normal size heart with moderate coronary artery calcifications. Mediastinum and dayanna: No mediastinum or hilar adenopathy. Vessels: Mild atherosclerosis of the aorta. Pulmonary artery size is equal to the aorta. Chest wall and lower neck: No soft tissue masses. Upper abdomen: Prior cholecystectomy. Hepatic steatosis. LEFT adrenal adenoma stable measuring 15 mm. Osseous structures: Negative. CT/CT chest wo con [id number] IMPRESSION: 1. Stable 7 mm nodule posterior RIGHT upper lobe. Additional 3 mm nodule at th e RIGHT apex. Recommend 6-[address] follow-up. 2. Chronic emphysema.I 3. Stable LEFT adrenal adenoma. 4. Prior cholecystectomy.
== END 2021-03-06 07:46 | disposition home or self-care (01) ==
LOC: RAD 07:50
PROVIDERS: PCP Nurse Practitioner Family; Visit Provider Family Medicine
DX: R91.1 Solitary pulmonary nodule (principal); J43.9 Emphysema, unspecified; D35.02 Benign neoplasm of left adrenal gland; Z90.49 Acquired absence of other specified parts of digestive tract
CPT/HCPCS: 71250

== ENCOUNTER 2021-03-19 08:34 | Outpatient (CLI) | payer MEDICARE, MEDICAID, SELFPAY ==
[2021-03-19 08:47] VITALS: BP 142/74; PULSE 78; RESP 18; TEMP 36.3; O2SAT 98
[2021-03-19] MEDS: acetaminophen 325 mg Tablet 650 MG PO (09:13)
[2021-03-19] MEDS: sodium chloride 0.9% 250 ML 75 ML IV (09:16)
[2021-03-19] MEDS: diphenhydrAMINE 50 mg/mL SDV 1mL 25 MG IVP (09:16)
[2021-03-19 09:26] LABS: Basophils # 0.1 10^3/uL (0.0-0.1); Basophils % 1.2 %; Eosinophils # 0.1 10^3/uL (0.0-0.8); Eosinophils % 3.2 %; Hematocrit 37.6 % (37.0-47.0); Hemoglobin 12.7 g/dL (11.5-15.3); Lymphocytes # 1.4 10^3/uL (0.8-4.8); Lymphocytes % 34.4 %; Mean Corpuscular HGB Conc 33.8 g/dL (30.0-36.0); Mean Corpuscular Hemoglobin 32.2 pg (28.0-34.0); Mean Corpuscular Volume 95.2 fL (81-99); Mean Platelet Volume 10.6 fL (7.4-10.4); Monocytes # 0.6 10^3/uL (0.2-0.9); Monocytes % 14.2 %; Neutrophils # 1.87 10^3/uL (1.8-7.7); Neutrophils % 46.8 %; Nucleated Red Blood Cells % 0 %; Platelet Count 172 10^3/cmm (130-400); Red Blood Count 3.95 10^6/uL (4.1-5.3); Red Cell Distribution Width 11.9 % (12.1-15.1)
[2021-03-19 09:53] LABS: Alanine Aminotransferase 72 U/L (0-33); Albumin Level 4.1 g/dL (3.5-5.2); Alkaline Phosphatase 36 IU/L (35-105); Aspartate Amino Transferase 45 U/L (0-32); C Reactive Protein 0.3 mg/L (0.0-4.9); Creatinine Clr Calc Pharmacy 152.2396; Ferritin 45 ng/mL (15-150); Glomerular Filtration Rate 124.6 mL/min (90-130); Iron 99 ug/dL (37-145); Percent Saturation 23.7 % (20-50); Total Bilirubin 0.7 mg/dL (0.15-1.2); Total Iron Binding Capacity 417 mcg/dl; Total Protein 6.1 g/dL (6.6-8.7); Unsaturated Iron Binding 318 ug/dL (112-347)
[2021-03-19 10:37] VITALS: BP 152/79; PULSE 74; RESP 18; TEMP 36.4; O2SAT 95
== END 2021-03-19 08:35 | disposition home or self-care (01) ==
PROVIDERS: PCP Nurse Practitioner Family; Visit Provider Internal Medicine Rheumatology
DX: E83.110 Hereditary hemochromatosis (principal); M05.79 Rheumatoid arthritis with rheumatoid factor of multiple sites without organ or systems involvement
CPT/HCPCS: 36415; 80076; 82565; 82728; 83540; 83550; 85025; 86140; 96365; 96375; J1200; J2920; J3262; J7050

== ENCOUNTER → 2021-03-23 14:22 | Outpatient (BNVA) | payer MEDICARE, MEDICAID, SELFPAY | PROVIDERS: PCP Nurse Practitioner Family; Visit Provider Internal Medicine Rheumatology | DX: M05.9 Rheumatoid arthritis with rheumatoid factor, unspecified (principal); E83.110 Hereditary hemochromatosis; Z79.899 Other long term (current) drug therapy; Z71.89 Other specified counseling; R74.01 Elevation of levels of liver transaminase levels; E11.9 Type 2 diabetes mellitus without complications; Z79.84 Long term (current) use of oral hypoglycemic drugs; Z87.891 Personal history of nicotine dependence | CPT/HCPCS: 99214 ==

== ENCOUNTER 2021-06-24 14:23 | Outpatient (CLI) | payer MEDICARE, MEDICAID, SELFPAY ==
[2021-06-24 15:40] LABS: Basophils # 0.1 10^3/uL (0.0-0.1); Basophils % 1.1 %; Eosinophils # 0.6 10^3/uL (0.0-0.8); Eosinophils % 7.7 %; Hematocrit 41.9 % (37.0-47.0); Hemoglobin 13.9 g/dL (11.5-15.3); Lymphocytes # 2.5 10^3/uL (0.8-4.8); Lymphocytes % 31.2 %; Mean Corpuscular HGB Conc 33.2 g/dL (30.0-36.0); Mean Corpuscular Hemoglobin 31.3 pg (28.0-34.0); Mean Corpuscular Volume 94.4 fl (81-99); Mean Platelet Volume 9.9 fL (7.4-10.4); Monocytes % 12.8 %; Neutrophils # 3.75 10^3/uL (1.8-7.7); Neutrophils % 47.1 %; Nucleated Red Blood Cells % 0 %; Platelet Count 188 10^3/cmm (130-400); Red Blood Count 4.44 10^6/uL (4.1-5.3)
[2021-06-24 15:49] LABS: Estmated Average Glucose 128; Hemoglobin A1C 6.1 % (4.0-6.0)
[2021-06-24 16:08] LABS: Alanine Aminotransferase 32 U/L (0-33); Albumin Level 4.2 g/dL (3.5-5.2); Alkaline Phosphatase 45 IU/L (35-105); Aspartate Amino Transferase 23 U/L (0-32); Blood Urea Nitrogen 12 mg/dL (8-23); C Reactive Protein 0.3 mg/L (0.0-4.9); Calcium 9.6 mg/dL (8.5-10.5); Carbon Dioxide 24 mmol/L (22-29); Chol HDL Ratio 4.15 mg/dL (0.0-4.40); Cholesterol 191 mg/dL (0-200); Free T4 Free Thyroxine 1.44 ng/dL (0.82-1.77); Globulin 2.6 g/dL (1.3-4.6); Glomerular Filtration Rate 124.6 mL/min (90-130); Glucose 105 mg/dL (65-115); HDL Cholesterol 46 mg/dL (60-100); LDL Cholesterol Calculated 115 mg/dL (50-129); Thyroid Stimulating Hormone 0.13 uIU/mL (0.27-4.20); Total Bilirubin 0.4 mg/dL (0.15-1.2); Total Protein 6.8 g/dL (6.6-8.7); Triglycerides 151 mg/dL (0-150)
[2021-06-24 17:11] LABS: Ferritin 26 ng/mL (15-150); Iron 106 ug/dL (37-145); Percent Saturation 23.7 % (20-50); Total Iron Binding Capacity 446 mcg/dl; Unsaturated Iron Binding 340 ug/dL (112-347)
[2021-06-24 17:12] LABS: Chloride 99 mmol/L (98-107); Osmolality Calculated 280 mOsm/kg (285-295); Sodium 135 mmol/L (136-145)
[2021-06-24 17:13] LABS: Anion Gap 16.3 (5-19); Potassium 4.3 mmol/L (3.5-5.1)
--- NOTE | 2021-06-28 10:33 | ONC FU_ITS ---
Dr. Lin Patient Follow-Up Note Patient: Shauna Smith Unit #: [id number]: 1960 Dicatated By: Ian Lin M.D.Date of Visit:Jun 24, 2021 Onc Med Follow-up/Prog Note Chief Complaint: Hemochromatosis. History of Present Illness: This is a 61 year-old woman with hereditary hemochromatosis. I had seen her initially in January 2014 in regard to elevated hemoglobin/hematocrit levels. Her records in [facility] included numerous blood counts between February 2011 and December 2013. All of these had shown borderline high to mildly elevated hemoglobin levels in the range of 15-16 g with hematocrits ranging from 45-48%. Her white blood cell counts had been borderline high and occasionally slightly elevated. Her platelet counts were consistently normal. Her red cell indices had been slightly macrocytic. Her subsequent evaluation included CBC showing hemoglobin 16.1 g with hematocrit 47.5%. The red cell indices were slightly macrocytic. The white blood cell count was normal at 7500 and the platelet count was normal at 166,000. Serum iron studies showed elevated transferrin saturation at 58% with ferritin level also mildly elevated at 473 ng/mL. B12 level was normal at 459 pg/mL. Erythropoietin level was normal at 11 mIU/mL. A JAK2 gene mutation study was negative. I had seen her again in September 2015. A CBC prior to that visit, from 09/26/2015, showed hemoglobin elevated at 17.3 g with hematocrit 52.3%. The red cell indices were mildly macrocytic. The white blood cell count was normal at 8200 and the platelet count was normal at 165,000. Her subsequent evaluation included a repeat erythropoietin level, which was still normal at 11 mIU/mL, and negative studies for the JAK2 V617F mutation and the JAK2 exon 12 mutation. The serum iron studies were again elevated with serum iron 268 mcg/dL and transferrin saturation 63%. The ferritin was elevated at 547 ng/mL. Comprehensive metabolic profile showed normal liver enzymes. An HFE gene analysis showed double heterozygosity for the C282Y and the H63D mutations, consistent with hereditary hemochromatosis. She began on a phlebotomy program in October 2015. Her follow-up laboratory studies on 02/24/2017 included CBC showing hemoglobin 15.2 g with hematocrit 45%. The white blood cell count was 10,000 and the platelet count was 253,000. The serum iron was down to 81 mcg/dL with transferrin saturation 17.6%. Ferritin was down to 13.5 ng/mL compared to 547 ng/mL in September 2015. At that point I did have her stop phlebotomies. As of her follow-up visit on 03/21/2018 her transferrin saturation was back up to 52.6% with serum ferritin 67 ng/mL, and she then restarted phlebotomies. I had seen her again in March. At that point she was having increasing difficulty getting her phlebotomies due to poor peripheral venous access. As such, we were then able to get her approved for a trial of therapy with deferasirox, which she started on 06/15/2018 at 720 mg daily. Her medical history is otherwise significant for longstanding rheumatoid arthritis. She has been on treatment with methotrexate and monthly infusions of Actemra. Her other medical illnesses include fibromyalgia, degenerative disease of the spine, hypothyroidism, and type 2 diabetes. She has a history of smoking for 30 years, although less than a pack of cigarettes daily. She quit smoking in November 2017. INTERIM HISTORY: As of 09/05/2018 her transferrin saturation had decreased to 37.9% and her ferritin level was down to 23.0 ng/mL. Her deferasirox dosage was reduced to 360 mg every other day due to GI intolerance. As of her follow-up visit in March 2019 the ferritin was in target range at 27.0 ng/mL but with serum iron studies showing transferrin saturation slightly elevated at 53%. She continued deferasirox at the same dosage. Her repeat serum iron studies on 04/01/2020 showed transferrin saturation down to 25.6% with ferritin in target range at 39 ng/mL. She is seen for a scheduled visit. She has continued taking deferasirox, which she tolerates pretty well taken every other day. She says her energy could be better. She is able to do light work. Her ECOG score is 1. She has good appetite. She has no fever or night sweats. She has not had sore mouth or throat. She has no shortness of breath, cough, or chest pain. She currently has no GI or complaints. In particular, she has not been having diarrhea. She has joint pain, but that depends a lot on the weather. She does not complain of headache or dizziness and she has no focal neurologic symptoms. Medications: Actemra Intravenous q 30 days, Aspirin 1 (81 mg) Tablet Oral daily, Cymbalta 1 Capsule (of 30 mg) Capsule Delayed Release Particles Oral daily, Folic Acid 1 (1 mg) Tablet Oral daily, Jadenu 1 Tablet (of 360 mg) Oral on Every Other Day, Januvia 1 Tablet Oral daily, Levothyroxine Sodium 1 (125 mcg) Tablet Oral daily, Lovastatin 1 (20 mg) Tablet Oral daily, Lovastatin 1 Tablet (of 10 mg) Oral daily, MetFORMIN HCl 2 Tablet (of 500 mg) Oral b.i.d., TraZODone HCl 1 Tablet (of 50 mg) Oral at bedtime Allergies: Penicillins Vital Signs: Performed on Jun 24, 2021 14:58 Height - 69.00 in Weight - 231 lbs (LOW) BSA - 2.20 sq.m BMI - 34.11 (HIGH) Temperature - 96.4 F (LOW) Pulse - 90 /min Respiration - 18 /min BP - 177/83 mm(hg) (HIGH) O2 Sat - 96 % Pain - 4 Fatigue - 6 Physical Examination: Constitutional - She looks good generally, Eyes - Sclerae nonicteric. Conjunctivae clear, ENMT - No lesions noted in the oral cavity, Hematologic/Lymphatic - No cervical, clavicular, or axillary adenopathy, Respiratory - Lungs are clear with good air movement bilaterally, Cardiovascular - Heart rhythm is regular. There is no murmur, gallop, or rub noted, Abdomen - Mildly distended. Liver and spleen do not appear enlarged. There is no abdominal mass or ascites noted and there is no inguinal adenopathy, Extremities - No edema, Neurologic - No focal neurologic deficits noted. Lab/Imaging: Test performed on Jun 24, 2021 15:20 Cholesterol, Total 191 mg/dL Ferritin 26 ng/mL Iron 106 mcg/dL Sodium 135 mmol/L T4, Free 1.44 ng/dL TSH 0.13 uIU/mL Iron Binding Capacity (TIBC) 446 mcg/dl Potassium 4.3 mmol/L Triglycerides 151 mg/dL % Iron Saturation 23.7 % Chloride 99 mmol/L LDL Cholesterol 115 mg/dL CO2 24 mmol/L UIBC 340 mcg/dL Anion Gap 16.3 HDL Cholesterol 46 mg/dL BUN 12 mg/dL Cholesterol/HDL Ratio 4.15 mg/dL Creatinine 0.5 mg/dL LDL / HDL Ratio 2.50 RATIO Cr Clearance (Est) 190.5000 mL/min eGFR 124.6 mL/min Glucose 105 mg/dL Osmolality - Calculated 280 mOsm/kg Calcium 9.6 mg/dL Protein, Total 6.8 g/dL Albumin 4.2 g/dL Globulin 2.6 g/dL Bilirubin, Total 0.4 mg/dL ALT (SGPT) 32 U/L AST (SGOT) 23 U/L Alkaline Phosphatase 45 IU/L WBC 8.0 10 3/uL RBC 4.44 10 6/uL HGB 13.9 g/dL HCT 41.9 % MCV 94.4 fl MCH 31.3 pg MCHC 33.2 g/dL RDW 12.0 % Platelet Count 188 10 3/cmm MPV 9.9 fL Neutrophils 3.75 10 3/uL Lymphocytes 2.5 10 3/uL Monocytes 1.0 10 3/uL Eosinophils 0.6 10 3/uL Basophils 0.1 10 3/uL Neutrophil % 47.1 % Lymphocyte % 31.2 % Monocyte % 12.8 % Eosinophil % 7.7 % Basophils % 1.1 % NRBC % 0 % Problem List: 1. Hemochromatosis with HFE gene analysis showing double heterozygosity for the C282Y and the H63D mutations. 2. She has mildly elevated hemoglobin/hematocrit levels. Etiology is uncertain. With her smoking history she may have a component of secondary polycythemia, but this may just be related to hemochromatosis. 3. She has red blood cell macrocytosis which is probably related to the methotrexate. 4. Seropositive rheumatoid arthritis. 5. Fibromyalgia syndrome. 6. Degenerative disease of the spine. 7. Compensated hypothyroidism. 8. Vitamin D deficiency. 9. Mild diabetes. 10. Nicotine dependence (cigarettes). Problems Addressed with this Encounter and Plan: Patient presented with elevated transferrin saturation and ferritin levels, and she was found to be doubly heterozygous for the C282Y and the H63D mutations, consistent with hereditary hemochromatosis. She began phlebotomies for the hemochromatosis in October 2015. As of January 2017 her ferritin level and transferrin saturation were both low, and I had her stop phlebotomies. At her follow-up visit in February 2018 her transferrin saturation was back up over 50%. She then restarted phlebotomies. However, by March 2018 she was having increasing difficulty with phlebotomy due to poor peripheral venous access. On 06/15/2018 she began a trial of therapy with deferasirox at 720 mg daily. She was unable to tolerate it at that dosage due to GI side effects. Ultimately she was able to tolerate it adequately at a reduced dosage of 360 mg every other day. With that her transferrin saturation and ferritin levels have come down to target range. At this she appears stable clinically. Her transferrin saturation and serum ferritin remain in target range. She will continue deferasirox 360 mg every other day. Her laboratory studies can be repeated again in 6 months. I will see her for a follow-up visit again in 1 year. Signed By: Ian Lin M.D. <<Signature on File>>
== END 2021-06-24 14:24 | disposition home or self-care (01) ==
PROVIDERS: PCP Nurse Practitioner Family; Visit Provider Internal Medicine Medical Oncology
DX: E83.110 Hereditary hemochromatosis (principal); D75.9 Disease of blood and blood-forming organs, unspecified; R79.89 Other specified abnormal findings of blood chemistry; F17.210 Nicotine dependence, cigarettes, uncomplicated; E55.9 Vitamin D deficiency, unspecified; M06.9 Rheumatoid arthritis, unspecified; M79.7 Fibromyalgia
CPT/HCPCS: 36415; 80053; 80061; 82728; 83036; 83540; 83550; 84439; 84443; 85025; 86140; 99214

== ENCOUNTER → 2021-06-30 08:32 | Outpatient (BNVA) | payer MEDICARE, MEDICAID, SELFPAY | PROVIDERS: PCP Nurse Practitioner Family; Visit Provider Internal Medicine Rheumatology | DX: M05.9 Rheumatoid arthritis with rheumatoid factor, unspecified (principal); E83.110 Hereditary hemochromatosis; M18.11 Unilateral primary osteoarthritis of first carpometacarpal joint, right hand; Z79.899 Other long term (current) drug therapy; E11.9 Type 2 diabetes mellitus without complications; Z79.84 Long term (current) use of oral hypoglycemic drugs; R74.01 Elevation of levels of liver transaminase levels; Z71.89 Other specified counseling | CPT/HCPCS: 99214 ==

== ENCOUNTER 2021-09-08 08:34 | Outpatient (CLI) | payer MEDICARE, MEDICAID, SELFPAY ==
--- NOTE | 2021-09-08 09:12 | CT_ITS ---
WS: [email or web address] LDCT LUNG CANCER SCREENING TECHNIQUE: Noncontrast CT of the chest with coronal and sagittal reformatted images. CLINICAL INFORMATION: HX OF TOBACCO USE COMPARISON: CT chest 03/06/2021 and 09/05/2020 DLP: 102.24 mGy.cm DIvol: 1.58 mGy,1.[address] scans at [facility] use at least one of these dose optimization techniques: automat ed exposure control; mA and/or kV adjustment per patient size (includes targeted exams where dose is matched to clinical indication); or iterative reconstruction. FINDINGS: Stable 7 mm subpleural nodule right upper lobe posteriorly. Additional 3 mm subpleural nodule right u pper lobe laterally also unchanged. Recommend 12 month follow-up. No other suspicious pulmonary opacities. No acute pulmonary infiltrates. Aortic calcification. Ragland ry calcification. No mediastinal or hilar lymphadenopathy. No axillary lymphadenopathy. Right adrenal gland is normal. 16 mm left adrenal adenoma is stable. Cholecystectomy clips. Normal GE junction. CT/CT lung screening [id number] IMPRESSION: LUNG-RADS: 2-Benign Appearance or Behavior FOLLOW UP: 12 Month: Continue annual screening with LDCT
== END 2021-09-08 08:35 | disposition home or self-care (01) ==
LOC: RAD 08:45
PROVIDERS: PCP Nurse Practitioner Family; Visit Provider Family Medicine
DX: Z12.2 Encounter for screening for malignant neoplasm of respiratory organs (principal); Z87.891 Personal history of nicotine dependence
CPT/HCPCS: 71271

== ENCOUNTER → 2021-10-29 09:14 | Outpatient (BNVA) | payer MEDICARE, MEDICAID, SELFPAY | PROVIDERS: PCP Nurse Practitioner Family; Visit Provider Internal Medicine Rheumatology | DX: M05.79 Rheumatoid arthritis with rheumatoid factor of multiple sites without organ or systems involvement (principal); Z79.899 Other long term (current) drug therapy; E83.110 Hereditary hemochromatosis; M18.9 Osteoarthritis of first carpometacarpal joint, unspecified; E11.9 Type 2 diabetes mellitus without complications; Z79.84 Long term (current) use of oral hypoglycemic drugs; R74.01 Elevation of levels of liver transaminase levels; Z71.89 Other specified counseling | CPT/HCPCS: 99214 ==

== ENCOUNTER 2021-12-28 12:01 | Oncology outpatient (recurring) (ONCR) | payer MEDICARE, MEDICAID, SELFPAY ==
[2021-12-28 12:43] LABS: Basophils # 0.1 10^3/uL (0.0-0.1); Basophils % 1.2 %; Eosinophils # 0.3 10^3/uL (0.0-0.8); Eosinophils % 4.6 %; Hematocrit 40.5 % (37.0-47.0); Hemoglobin 13.2 g/dL (11.5-15.3); Lymphocytes % 33.3 %; Mean Corpuscular HGB Conc 32.6 g/dL (30.0-36.0); Mean Corpuscular Hemoglobin 30.1 pg (28.0-34.0); Mean Corpuscular Volume 92.3 fl (81-99); Mean Platelet Volume 9.9 fL (7.4-10.4); Monocytes # 0.8 10^3/uL (0.2-0.9); Monocytes % 13.8 %; Neutrophils # 2.85 10^3/uL (1.8-7.7); Neutrophils % 46.9 %; Nucleated Red Blood Cells % 0 %; Platelet Count 191 10^3/cmm (130-400); Red Blood Count 4.39 10^6/uL (4.1-5.3); Red Cell Distribution Width 12.7 % (12.1-15.1); White Blood Count 6.1 10^3/uL (4.0-10.0)
[2021-12-28 13:00] LABS: Alanine Aminotransferase 37 U/L (0-33); Albumin Level 4.3 g/dL (3.5-5.2); Alkaline Phosphatase 46 IU/L (35-105); Aspartate Amino Transferase 25 U/L (0-32); Blood Urea Nitrogen 16 mg/dL (8-23); Calcium 9.9 mg/dL (8.5-10.5); Carbon Dioxide 22 mmol/L (22-29); Chloride 99 mmol/L (98-107); Globulin 2.8 g/dL (1.3-4.6); Glomerular Filtration Rate 84.5 mL/min (90-130); Glucose 109 mg/dL (65-115); Osmolality Calculated 282 mOsm/kg (285-295); Sodium 135 mmol/L (136-145); Total Bilirubin 0.4 mg/dL (0.15-1.2); Total Protein 7.1 g/dL (6.6-8.7)
[2021-12-28 13:02] LABS: Anion Gap 18.4 (5-19); Potassium 4.4 mmol/L (3.5-5.1)
[2021-12-28 13:10] LABS: Chol HDL Ratio 4.32 mg/dL (0.0-4.40); Cholesterol 203 mg/dL (0-200); Ferritin 19 ng/mL (15-150); HDL Cholesterol 47 mg/dL (60-100); Iron 77 ug/dL (37-145); LDL Cholesterol Calculated 108 mg/dL (50-129); Percent Saturation 17.7 % (20-50); Thyroid Stimulating Hormone 2.33 uIU/mL (0.27-4.20); Total Iron Binding Capacity 435 mcg/dl; Triglycerides 239 mg/dL (0-150); Unsaturated Iron Binding 358 ug/dL (112-347)
[2021-12-29 07:57] LABS: T4 Total 7.4 mcg/dL (5.1-11.9)
== END 2022-01-26 23:59 | disposition home or self-care (01) ==
PROVIDERS: Internal Medicine Rheumatology; PCP Nurse Practitioner Family; Visit Provider Internal Medicine Medical Oncology
DX: E83.110 Hereditary hemochromatosis (principal)
CPT/HCPCS: 80053; 80061; 82248; 82728; 83540; 83550; 84436; 84443; 85025; 86140

== ENCOUNTER 2021-12-30 10:05 | Outpatient (CLI) | payer MEDICARE, MEDICAID, SELFPAY ==
--- NOTE | 2021-12-30 10:22 | XRR_ITS ---
PROCEDURE INFORMATION: Exam: XR Right Knee Exam date and time: 12/30/2021 10:24 AM Age: 61 years old Clinical indication: Pain; Knee; Right; Additional info: R knee joint pain TECHNIQUE: Imaging protocol: XR Right knee. Views: 3 views. COMPARISON: CR XR foot RT min 3V* [id number] 11/14/2019 8:42 AM FINDINGS: Bones/joints: Normal. Soft tissues: Normal. XR/XR knee RT 4V [id number] IMPRESSION: No acute findings.
== END 2021-12-30 10:06 | disposition home or self-care (01) ==
PROVIDERS: PCP Nurse Practitioner Family; Visit Provider Nurse Practitioner Family
DX: M25.561 Pain in right knee (principal)
CPT/HCPCS: 73564

== ENCOUNTER → 2022-02-16 13:57 | Outpatient (BNVA) | payer MEDICARE, MEDICAID, SELFPAY | PROVIDERS: PCP Nurse Practitioner Family; Visit Provider Internal Medicine Rheumatology | DX: E83.110 Hereditary hemochromatosis (principal); M05.79 Rheumatoid arthritis with rheumatoid factor of multiple sites without organ or systems involvement; M18.11 Unilateral primary osteoarthritis of first carpometacarpal joint, right hand; Z79.899 Other long term (current) drug therapy; E11.9 Type 2 diabetes mellitus without complications; Z79.84 Long term (current) use of oral hypoglycemic drugs; R74.01 Elevation of levels of liver transaminase levels; Z71.89 Other specified counseling | CPT/HCPCS: 99214 ==

== ENCOUNTER 2022-04-14 13:32 | Oncology outpatient (recurring) (ONCR) | payer MEDICARE, MEDICAID, SELFPAY ==
[2022-04-14 13:48] LABS: Basophils # 0.1 10^3/uL (0.0-0.1); Basophils % 0.9 %; Eosinophils # 0.3 10^3/uL (0.0-0.8); Eosinophils % 3.5 %; Hematocrit 44.1 % (37.0-47.0); Hemoglobin 14.5 g/dL (11.5-15.3); Lymphocytes # 2.7 10^3/uL (0.8-4.8); Lymphocytes % 36.4 %; Mean Corpuscular HGB Conc 32.9 g/dL (30.0-36.0); Mean Corpuscular Volume 97.4 fl (81-99); Mean Platelet Volume 9.5 fL (7.4-10.4); Monocytes # 0.8 10^3/uL (0.2-0.9); Monocytes % 11.2 %; Neutrophils # 3.59 10^3/uL (1.8-7.7); Neutrophils % 47.7 %; Nucleated Red Blood Cells % 0 %; Platelet Count 157 10^3/cmm (130-400); Red Blood Count 4.53 10^6/uL (4.1-5.3); Red Cell Distribution Width 12.7 % (12.1-15.1); White Blood Count 7.5 10^3/uL (4.0-10.0)
[2022-04-14 14:18] LABS: Alanine Aminotransferase 54 U/L (0-33); Albumin Level 4.6 g/dL (3.5-5.2); Alkaline Phosphatase 42 U/L (35-105); Anion Gap 15.7 (5-19); Aspartate Amino Transferase 29 U/L (0-32); Blood Urea Nitrogen 13 mg/dL (8-23); Carbon Dioxide 25 mmol/L (22-29); Chloride 101 mmol/L (98-107); Ferritin 70 ng/mL (15-150); Globulin 2.1 g/dL (1.3-4.6); Glomerular Filtration Rate 84.2 mL/min (90-130); Glucose 119 mg/dL (65-115); Iron 203 ug/dL (37-145); Osmolality Calculated 285 mOsm/kg (285-295); Percent Saturation 60.5 % (20-50); Potassium 4.7 mmol/L (3.5-5.1); Sodium 137 mmol/L (136-145); Total Bilirubin 0.3 mg/dL (0.15-1.2); Total Iron Binding Capacity 335 mcg/dl; Total Protein 6.7 g/dL (6.6-8.7); Unsaturated Iron Binding 132 ug/dL (112-347)
== END 2022-04-28 23:59 | disposition home or self-care (01) ==
PROVIDERS: PCP Nurse Practitioner Family; Visit Provider Internal Medicine Medical Oncology
DX: E83.110 Hereditary hemochromatosis (principal)
CPT/HCPCS: 36415; 80053; 82728; 83540; 83550; 85025

== ENCOUNTER → 2022-05-17 09:27 | Outpatient (BNVA) | payer MEDICARE, MEDICAID, SELFPAY | PROVIDERS: PCP Nurse Practitioner Family; Visit Provider Internal Medicine Rheumatology | DX: M05.79 Rheumatoid arthritis with rheumatoid factor of multiple sites without organ or systems involvement (principal); Z79.899 Other long term (current) drug therapy; Z71.89 Other specified counseling; E83.110 Hereditary hemochromatosis; R74.01 Elevation of levels of liver transaminase levels; E11.9 Type 2 diabetes mellitus without complications; Z79.84 Long term (current) use of oral hypoglycemic drugs | CPT/HCPCS: 99214 ==

== ENCOUNTER 2022-07-13 09:02 | Outpatient (CLI) | payer MEDICARE, MEDICAID, SELFPAY ==
[2022-07-13 09:30] LABS: Basophils # 0.1 10^3/uL (0.0-0.1); Basophils % 1.4 %; Eosinophils # 0.3 10^3/uL (0.0-0.8); Eosinophils % 5.4 %; Hematocrit 41.1 % (37.0-47.0); Hemoglobin 13.8 g/dL (11.5-15.3); Lymphocytes # 1.7 10^3/uL (0.8-4.8); Lymphocytes % 33.5 %; Mean Corpuscular HGB Conc 33.6 g/dL (30.0-36.0); Mean Corpuscular Hemoglobin 32.8 pg (28.0-34.0); Mean Corpuscular Volume 97.6 fl (81-99); Monocytes # 0.6 10^3/uL (0.2-0.9); Monocytes % 10.9 %; Neutrophils # 2.49 10^3/uL (1.8-7.7); Neutrophils % 48.4 %; Nucleated Red Blood Cells % 0 %; Platelet Count 169 10^3/cmm (130-400); Red Blood Count 4.21 10^6/uL (4.1-5.3); Red Cell Distribution Width 12.1 % (12.1-15.1); White Blood Count 5.1 10^3/uL (4.0-10.0)
[2022-07-13 09:55] LABS: Alanine Aminotransferase 62 U/L (0-33); Albumin Level 4.2 g/dL (3.5-5.2); Alkaline Phosphatase 42 U/L (35-105); Anion Gap 19.2 (5-19); Aspartate Amino Transferase 37 U/L (0-32); Blood Urea Nitrogen 11 mg/dL (8-23); Calcium 9.5 mg/dL (8.5-10.5); Carbon Dioxide 24 mmol/L (22-29); Chloride 100 mmol/L (98-107); Ferritin 120 ng/mL (15-150); Globulin 2.9 g/dL (1.3-4.6); Glomerular Filtration Rate 84.2 mL/min (90-130); Glucose 188 mg/dL (65-115); Iron 208 ug/dL (37-145); Osmolality Calculated 292 mOsm/kg (285-295); Percent Saturation 58.1 % (20-50); Potassium 4.2 mmol/L (3.5-5.1); Sodium 139 mmol/L (136-145); Total Bilirubin 0.6 mg/dL (0.15-1.2); Total Iron Binding Capacity 358 mcg/dl; Total Protein 7.1 g/dL (6.6-8.7); Unsaturated Iron Binding 150 ug/dL (112-347)
[2022-07-13 09:58] LABS: Estmated Average Glucose 117; Hemoglobin A1C 5.7 % (4.0-6.0)
[2022-07-13 14:49] LABS: Creatinine Urine, Random 79 mg/dL (28-217); Microalbum Creatinine Ratio Ur 13 mg/dL (0-20); Microalbumin Random Urine 1 ug/dL (0-20)
== END 2022-07-13 09:03 | disposition home or self-care (01) ==
LOC: LAB 09:05
PROVIDERS: PCP Nurse Practitioner Family; Visit Provider Nurse Practitioner Family
DX: E11.9 Type 2 diabetes mellitus without complications (principal)
CPT/HCPCS: 36415; 80053; 82044; 82728; 83036; 83540; 83550; 85025

== ENCOUNTER 2022-07-20 13:18 | Oncology outpatient (recurring) (ONCR) | payer MEDICARE, MEDICAID, SELFPAY | END 2022-07-28 23:59 | disposition home or self-care (01) | PROVIDERS: PCP Nurse Practitioner Family; Visit Provider Internal Medicine Medical Oncology | DX: E83.110 Hereditary hemochromatosis (principal); Z79.899 Other long term (current) drug therapy | CPT/HCPCS: 99214 ==

== ENCOUNTER → 2022-09-06 09:01 | Outpatient (BNVA) | payer MEDICARE, MEDICAID, SELFPAY | PROVIDERS: PCP Nurse Practitioner Family; Visit Provider Internal Medicine Rheumatology | DX: M05.79 Rheumatoid arthritis with rheumatoid factor of multiple sites without organ or systems involvement (principal); Z79.899 Other long term (current) drug therapy; Z71.89 Other specified counseling; M18.11 Unilateral primary osteoarthritis of first carpometacarpal joint, right hand; E11.9 Type 2 diabetes mellitus without complications; R74.01 Elevation of levels of liver transaminase levels; Z79.84 Long term (current) use of oral hypoglycemic drugs; E83.110 Hereditary hemochromatosis | CPT/HCPCS: 99214 ==

== ENCOUNTER → 2022-10-08 09:59 | Outpatient (BNVA) | payer MEDICARE, MEDICAID, SELFPAY | PROVIDERS: PCP Family Medicine; Visit Provider Internal Medicine | DX: I25.118 Atherosclerotic heart disease of native coronary artery with other forms of angina pectoris (principal); R06.02 Shortness of breath; E11.9 Type 2 diabetes mellitus without complications; Z79.84 Long term (current) use of oral hypoglycemic drugs; M05.9 Rheumatoid arthritis with rheumatoid factor, unspecified | CPT/HCPCS: 99214 ==

== ENCOUNTER 2022-10-25 09:52 | Oncology outpatient (recurring) (ONCR) | payer MEDICARE, MEDICAID, SELFPAY ==
[2022-10-25 10:36] LABS: Basophils # 0.1 10^3/uL (0.0-0.1); Basophils % 0.9 %; Eosinophils # 0.4 10^3/uL (0.0-0.8); Eosinophils % 4.5 %; Hematocrit 43.5 % (37.0-47.0); Hemoglobin 14.4 g/dL (11.5-15.3); Lymphocytes # 2.4 10^3/uL (0.8-4.8); Lymphocytes % 27.2 %; Mean Corpuscular HGB Conc 33.1 g/dL (30.0-36.0); Mean Corpuscular Hemoglobin 31.3 pg (28.0-34.0); Mean Corpuscular Volume 94.6 fl (81-99); Mean Platelet Volume 9.5 fL (7.4-10.4); Monocytes # 0.8 10^3/uL (0.2-0.9); Monocytes % 9.1 %; Neutrophils # 5.02 10^3/uL (1.8-7.7); Nucleated Red Blood Cells % 0 %; Platelet Count 194 10^3/cmm (130-400); Red Cell Distribution Width 12.1 % (12.1-15.1); White Blood Count 8.7 10^3/uL (4.0-10.0)
[2022-10-25 10:52] LABS: Alanine Aminotransferase 32 U/L (0-33); Albumin Level 4.6 g/dL (3.5-5.2); Alkaline Phosphatase 50 U/L (35-105); Anion Gap 14.9 (5-19); Aspartate Amino Transferase 23 U/L (0-32); Blood Urea Nitrogen 11 mg/dL (8-23); Calcium 9.6 mg/dL (8.5-10.5); Carbon Dioxide 26 mmol/L (22-29); Chloride 103 mmol/L (98-107); Ferritin 61 ng/mL (15-150); Globulin 2.4 g/dL (1.3-4.6); Glomerular Filtration Rate 84.2 mL/min (90-130); Glucose 137 mg/dL (65-115); Iron 140 ug/dL (37-145); Osmolality Calculated 290 mOsm/kg (285-295); Percent Saturation 39.6 % (20-50); Potassium 4.9 mmol/L (3.5-5.1); Sodium 139 mmol/L (136-145); Total Bilirubin 0.5 mg/dL (0.15-1.2); Total Iron Binding Capacity 353 mcg/dl; Unsaturated Iron Binding 213 ug/dL (112-347)
== END 2022-10-26 23:59 | disposition home or self-care (01) ==
LOC: ONCMED 09:52
PROVIDERS: PCP Family Medicine; Visit Provider Internal Medicine Medical Oncology
DX: E83.110 Hereditary hemochromatosis (principal)
CPT/HCPCS: 36415; 80053; 82728; 83540; 83550; 85025

== ENCOUNTER 2022-11-04 06:56 | Outpatient (CLI) | payer MEDICARE, MEDICAID, SELFPAY ==
--- NOTE | 2022-11-04 07:15 | USCV_ITS ---
Shauna Smith Age: 62 Gender: F : 1960 Exam Date: 11/04/2022 07:15 Ordering Phys: Shantanu Rainey M.D ([email or web address]) Technologist: TATYANA [place] [facility] [place]: SHORTNESS OF BREATH BP: 130 / 70 HR: 78 Rhythm: Sinus Technical Quality: Suboptimal MEASUREMENTS (Male / Female) Normal Values 2D ECHO LVOT Diameter 2.0 cm LV Ejection Fraction MOD 2C 54.0 % LV Ejection Fraction 2C AL 58.3 % LA Diameter 3.4 cm LA Width 3.2 cm LA Height 5.8 cm RA Width 3.1 cm RA Height 4.3 cm Aorta at Sinotubular Diameter 2.4 cm IVC Diameter 2.1 cm M-MODE Aortic Annulus Diameter 2.7 cm LA Ao Ratio MM 1.1 MV E Point Septal Separation 0.9 cm DOPPLER AV Peak Velocity 135.0 cm/s LVOT Peak Velocity 91.0 cm/s AV Area Cont Eq vti 2.6 cm squared AV Area Cont Eq pk 2.1 cm squared MV Peak Velocity 92.0 cm/s MV Area PHT 3.0 cm squared Mitral E to A Ratio 0.7 MV E' Velocity 37.0 cm/s Mitral E to MV E' Ratio 5.7 Mitral E to LV E' Lateral Ratio 5.7 Mitral E to LV E' Septal Ratio 5.6 TR Peak Velocity 156.2 cm/s TR Peak Gradient 9.8 mmHg TR Mean Velocity 139.3 cm/s TR Mean Gradient 7.8 mmHg TR Velocity Time Integral 49.9 cm TV Peak E Velocity 67.0 cm/s Right Atrial Pressure 3.0 mmHg Pulmonary Artery Systolic Pressu 12.8 mmHg PV Peak Velocity 84.0 cm/s RV Acceleration Time 0.2 s RV Ejection Time 0.4 s RV AcT/ET 0.5 FINDINGS Left Ventricle Normal left ventricular size, systolic function and wall thickness, with no regional wall motion abnormalities. Grade I/IV diastolic dysfunction (abnormal relaxation filling pattern), normal to mildly elevated filling pressures. Left ventricular ejection fraction is estimated at 55 %. Right Ventricle Normal right ventricular size and systolic function. Normal right ventricular systolic function. Right Atrium The right atrium is normal in size. Left Atrium Mildly increased left atrial size. Mitral Valve Structurally normal mitral valve without significant stenosis or prolapse. There is no mitral regurgitation. Aortic Valve Structurally normal aortic valve without significant sclerosis or stenosis. There is no aortic regurgitation. Tricuspid Valve Structurally normal tricuspid valve without significant stenosis or regurgitation. Pulmonary artery systolic pressure is normal. Pulmonic Valve Pulmonic valve not well visualized. Pericardium Normal pericardium without effusion. Aorta Normal ascending aorta dimension. IVC Inferior vena cava not visualized. CONCLUSIONS Normal left ventricular size, systolic function and wall thickness, with no regional wall motion abnormalities. Grade I/IV diastolic dysfunction (abnormal relaxation filling pattern), normal to mildly elevated filling pressures. Left ventricular ejection fraction is estimated at 55 %. Mildly increased left atrial size. There are no prior echocardiogram studies to compare. Dr. Noe Yanez MD (Electronically Signed) Final Date: 04 November 2022 17:47 S
== END 2022-11-04 06:57 | disposition home or self-care (01) ==
LOC: RAD 06:59
PROVIDERS: PCP Family Medicine; Visit Provider Internal Medicine
DX: R06.02 Shortness of breath (principal); I51.7 Cardiomegaly
CPT/HCPCS: 93306

== ENCOUNTER 2022-11-19 10:59 | Outpatient (CLI) | payer MEDICARE, MEDICAID, SELFPAY ==
--- NOTE | 2022-11-19 11:08 | CT_ITS ---
WS: [email or web address] LDCT LUNG CANCER SCREENING TECHNIQUE: Noncontrast CT of the chest with coronal and sagittal reformatted images. CLINICAL INFORMATION: HX OF TOBACCO USE COMPARISON: CT September 08, 2021 DLP: 83.21 mGy.cm DIvol: Mean CTDIvol: 1.60 (mGy) All CT scans at [facility] use at least one of these dose optimization techniques: automat ed exposure control; mA and/or kV adjustment per patient size (includes targeted exams where dose is matched to clinical indication); or iterative reconstruction. FINDINGS: Stable 7 mm subpleural nodule right upper lobe posteriorly. Additional 3 mm subpleural nodule right u pper lobe laterally also unchanged. Small 3 mm opacity LEFT upper lobe. Small subpleural nodule LEFT lower lobe. Recommend 12 month follow-up. No new pulmonary opacities. Aortic calcification. Coronary calcification. No mediastinal or hilar lym phadenopathy. No axillary lymphadenopathy. Right adrenal gland is normal. 16 mm left adrenal adenoma is stable. Cholecystectomy clips. Normal GE junction. CT/CT lung screening [id number] IMPRESSION: LUNG-RADS: 2-Benign Appearance or Behavior FOLLOW UP: 12 Month: Continue annual screening with LDCT
== END 2022-11-19 11:00 | disposition home or self-care (01) ==
LOC: RAD 11:02
PROVIDERS: PCP Family Medicine; Visit Provider Family Medicine
DX: Z12.2 Encounter for screening for malignant neoplasm of respiratory organs (principal); Z87.891 Personal history of nicotine dependence
CPT/HCPCS: 71271

== ENCOUNTER → 2022-12-13 09:15 | Outpatient (BNVA) | payer MEDICARE, MEDICAID, SELFPAY | PROVIDERS: PCP Family Medicine; Visit Provider Internal Medicine Rheumatology | DX: M05.79 Rheumatoid arthritis with rheumatoid factor of multiple sites without organ or systems involvement (principal); Z79.899 Other long term (current) drug therapy; Z71.89 Other specified counseling | CPT/HCPCS: 99214 ==

== ENCOUNTER 2023-01-12 09:30 | Outpatient (CLI) | payer MEDICARE, MEDICAID, SELFPAY ==
[2023-01-12 11:09] LABS: Basophils # 0.1 10^3/uL (0.0-0.1); Basophils % 0.8 %; Eosinophils # 0.3 10^3/uL (0.0-0.8); Eosinophils % 4.4 %; Hemoglobin 13.4 g/dL (11.5-15.3); Lymphocytes # 1.8 10^3/uL (0.8-4.8); Lymphocytes % 29.9 %; Mean Corpuscular HGB Conc 33.5 g/dL (30.0-36.0); Mean Corpuscular Hemoglobin 32.4 pg (28.0-34.0); Mean Corpuscular Volume 96.9 fl (81-99); Mean Platelet Volume 10.5 fL (7.4-10.4); Monocytes # 0.7 10^3/uL (0.2-0.9); Monocytes % 11.3 %; Neutrophils # 3.27 10^3/uL (1.8-7.7); Neutrophils % 53.3 %; Nucleated Red Blood Cells % 0 %; Platelet Count 157 10^3/cmm (130-400); Red Blood Count 4.13 10^6/uL (4.1-5.3); Red Cell Distribution Width 12.2 % (12.1-15.1); White Blood Count 6.1 10^3/uL (4.0-10.0)
[2023-01-12 11:29] LABS: Alanine Aminotransferase 39 U/L (0-33); Albumin Level 4.2 g/dL (3.5-5.2); Alkaline Phosphatase 38 U/L (35-105); Aspartate Amino Transferase 24 U/L (0-32); Blood Urea Nitrogen 15 mg/dL (8-23); Calcium 8.9 mg/dL (8.5-10.5); Carbon Dioxide 22 mmol/L (22-29); Chloride 100 mmol/L (98-107); Ferritin 45 ng/mL (15-150); Globulin 2.4 g/dL (1.3-4.6); Glomerular Filtration Rate 100.6 mL/min (90-130); Glucose 188 mg/dL (65-115); Iron 138 ug/dL (37-145); Osmolality Calculated 288 mOsm/kg (285-295); Percent Saturation 38.5 % (20-50); Sodium 136 mmol/L (136-145); Total Bilirubin 0.4 mg/dL (0.15-1.2); Total Iron Binding Capacity 358 mcg/dl; Total Protein 6.6 g/dL (6.6-8.7); Unsaturated Iron Binding 220 ug/dL (112-347)
[2023-01-12 11:36] LABS: Anion Gap 18.4 (5-19); Potassium 4.4 mmol/L (3.5-5.1)
[2023-01-12 11:40] LABS: Chol HDL Ratio 4.59 mg/dL (0.0-4.40); Cholesterol 225 mg/dL (0-200); HDL Cholesterol 49 mg/dL (60-100); LDL Cholesterol Calculated 126 mg/dL (50-129); LDL HDL Ratio 2.57 RATIO (0.00-3.22); Thyroid Stimulating Hormone 2.89 uIU/mL (0.27-4.20); Triglycerides 251 mg/dL (0-150)
== END 2023-01-12 09:31 | disposition home or self-care (01) ==
PROVIDERS: Nurse Practitioner Family; PCP Family Medicine; Visit Provider Internal Medicine Medical Oncology
DX: E78.5 Hyperlipidemia, unspecified (principal); E83.110 Hereditary hemochromatosis; E03.9 Hypothyroidism, unspecified; I10 Essential (primary) hypertension
CPT/HCPCS: 36415; 80053; 80061; 82728; 83540; 83550; 84443; 85025

== ENCOUNTER 2023-01-19 13:14 | Oncology outpatient (recurring) (ONCR) | payer MEDICARE, MEDICAID, SELFPAY | END 2023-01-26 23:59 | disposition home or self-care (01) | LOC: ONCMED 13:17 | PROVIDERS: PCP Family Medicine; Visit Provider Internal Medicine Medical Oncology | DX: E83.110 Hereditary hemochromatosis (principal); Z79.899 Other long term (current) drug therapy | CPT/HCPCS: 99214 ==

== ENCOUNTER → 2023-03-14 09:19 | Outpatient (BNVA) | payer MEDICARE, MEDICAID, SELFPAY | PROVIDERS: PCP Family Medicine; Visit Provider Internal Medicine Rheumatology | DX: M05.79 Rheumatoid arthritis with rheumatoid factor of multiple sites without organ or systems involvement (principal); Z79.899 Other long term (current) drug therapy; Z71.89 Other specified counseling; M18.11 Unilateral primary osteoarthritis of first carpometacarpal joint, right hand | CPT/HCPCS: 99214 ==

== ENCOUNTER 2023-03-21 08:21 | Outpatient (CLI) | payer MEDICARE, MEDICAID, SELFPAY ==
[2023-03-23 12:19] LABS: Quantiferon Mitogen >10.00 IU/mL; Quantiferon Nil 0.28 IU/mL; Quantiferon Plus TB1 0.09 IU/mL; Quantiferon Plus TB2 0.08 IU/mL; Quantiferon TB Gold NEGATIVE (NEGATIVE)
== END 2023-03-21 08:22 | disposition home or self-care (01) ==
PROVIDERS: PCP Family Medicine; Visit Provider Internal Medicine Rheumatology
DX: Z11.1 Encounter for screening for respiratory tuberculosis (principal)
CPT/HCPCS: 36415; 86480

== ENCOUNTER → 2023-05-17 08:58 | Outpatient (BNVA) | payer MEDICARE, MEDICAID, SELFPAY | PROVIDERS: PCP Family Medicine; Visit Provider Nurse Practitioner Family | DX: L57.0 Actinic keratosis (principal); L81.4 Other melanin hyperpigmentation; D22.5 Melanocytic nevi of trunk; L85.3 Xerosis cutis; L57.8 Other skin changes due to chronic exposure to nonionizing radiation; Z85.828 Personal history of other malignant neoplasm of skin; D48.5 Neoplasm of uncertain behavior of skin | CPT/HCPCS: 17000; 69100; 99213 ==

== ENCOUNTER 2023-06-06 09:31 | Outpatient (CLI) | payer MEDICARE, MEDICAID, SELFPAY ==
[2023-06-06 09:52] LABS: Basophils # 0.1 10^3/uL (0.0-0.1); Eosinophils # 0.4 10^3/uL (0.0-0.8); Eosinophils % 5.1 %; Hematocrit 39.7 % (36-47); Lymphocytes # 1.8 10^3/uL (0.8-4.8); Lymphocytes % 26.2 %; Mean Corpuscular Hemoglobin 31.7 pg (27-33); Mean Corpuscular Volume 96.1 fl (85-98); Mean Platelet Volume 9.7 fL (7.4-10.4); Monocytes # 0.7 10^3/uL (0.2-0.9); Monocytes % 9.5 %; Neutrophils # 3.99 10^3/uL (1.8-7.7); Neutrophils % 58.1 %; Nucleated Red Blood Cells % 0 %; Platelet Count 192 10^3/cmm (157-399); Red Blood Count 4.13 10^6/uL (3.85-5.65); Red Cell Distribution Width 12.1 % (12.1-15.1); White Blood Count 6.87 10^3/uL (3.29-11.43)
[2023-06-06 10:22] LABS: Ferritin 39 ng/mL (15-150); Iron 91 ug/dL (37-145); Percent Saturation 25.8 % (20-50); Total Iron Binding Capacity 352 mcg/dl; Unsaturated Iron Binding 261 ug/dL (112-347)
[2023-06-06 10:23] LABS: Alanine Aminotransferase 60 U/L (0-33); Albumin Level 4.2 g/dL (3.5-5.2); Alkaline Phosphatase 52 U/L (35-105); Anion Gap 13.6 (5-19); Aspartate Amino Transferase 34 U/L (0-32); Blood Urea Nitrogen 13 mg/dL (8-23); Calcium 8.9 mg/dL (8.5-10.5); Carbon Dioxide 26 mmol/L (22-29); Chloride 98 mmol/L (98-107); Globulin 2.4 g/dL (1.3-4.6); Glucose 276 mg/dL (65-115); Osmolality Calculated 286 mOsm/kg (285-295); Potassium 4.6 mmol/L (3.5-5.1); Sodium 133 mmol/L (136-145); Total Bilirubin 0.4 mg/dL (0.15-1.2); Total Protein 6.6 g/dL (6.6-8.7)
== END 2023-06-06 09:32 | disposition home or self-care (01) ==
PROVIDERS: Internal Medicine Medical Oncology; PCP Family Medicine; Visit Provider Internal Medicine Rheumatology
DX: M05.79 Rheumatoid arthritis with rheumatoid factor of multiple sites without organ or systems involvement (principal); Z79.899 Other long term (current) drug therapy; E83.110 Hereditary hemochromatosis
CPT/HCPCS: 36415; 80053; 82248; 82565; 82728; 83540; 83550; 85025; 86140

== ENCOUNTER → 2023-06-13 10:14 | Outpatient (BNVA) | payer MEDICARE, MEDICAID, SELFPAY | PROVIDERS: PCP Family Medicine; Visit Provider Internal Medicine Rheumatology | DX: M05.79 Rheumatoid arthritis with rheumatoid factor of multiple sites without organ or systems involvement (principal); Z79.899 Other long term (current) drug therapy; Z71.89 Other specified counseling; M18.11 Unilateral primary osteoarthritis of first carpometacarpal joint, right hand | CPT/HCPCS: 99214 ==

== ENCOUNTER 2023-07-20 12:05 | Oncology outpatient (recurring) (ONCR) | payer MEDICARE, MEDICAID, SELFPAY | END 2023-07-28 23:59 | disposition home or self-care (01) | PROVIDERS: PCP Family Medicine; Visit Provider Internal Medicine Medical Oncology | DX: E83.110 Hereditary hemochromatosis (principal); Z79.899 Other long term (current) drug therapy | CPT/HCPCS: 99214 ==

== ENCOUNTER 2023-10-07 08:06 | Outpatient (CLI) | payer MEDICARE, MEDICAID, SELFPAY ==
[2023-10-07 08:32] LABS: Basophils # 0.1 10^3/uL (0.0-0.1); Basophils % 0.7 %; Eosinophils # 0.3 10^3/uL (0.0-0.8); Eosinophils % 3.2 %; Lymphocytes # 2.6 10^3/uL (0.8-4.8); Lymphocytes % 26.3 %; Mean Corpuscular HGB Conc 32.7 g/dL (30-55); Mean Corpuscular Hemoglobin 30.7 pg (27-33); Mean Corpuscular Volume 93.8 fl (85-98); Mean Platelet Volume 9.7 fL (7.4-10.4); Monocytes # 1.2 10^3/uL (0.2-0.9); Neutrophils % 57.7 %; Nucleated Red Blood Cells % 0 %; Platelet Count 208 10^3/cmm (157-399); Red Blood Count 4.37 10^6/uL (3.85-5.65); Red Cell Distribution Width 12.7 % (12.1-15.1); White Blood Count 9.72 10^3/uL (3.29-11.43)
[2023-10-07 08:49] LABS: Alanine Aminotransferase 27 U/L (0-33); Albumin Level 4.1 g/dL (3.5-5.2); Alkaline Phosphatase 62 U/L (35-105); Anion Gap 15.5 (5-19); Aspartate Amino Transferase 19 U/L (0-32); Blood Urea Nitrogen 10 mg/dL (8-23); Calcium 9.5 mg/dL (8.5-10.5); Carbon Dioxide 26 mmol/L (22-29); Chloride 99 mmol/L (98-107); Globulin 3.3 g/dL (1.3-4.6); Glucose 152 mg/dL (65-115); Osmolality Calculated 284 mOsm/kg (285-295); Potassium 4.5 mmol/L (3.5-5.1); Sodium 136 mmol/L (136-145); Total Bilirubin 0.3 mg/dL (0.15-1.2); Total Protein 7.4 g/dL (6.6-8.7)
== END 2023-10-07 08:07 | disposition home or self-care (01) ==
LOC: LAB 08:11
PROVIDERS: Absent Provider Nurse Practitioner Family; PCP Family Medicine; Visit Provider Internal Medicine Rheumatology
DX: M05.79 Rheumatoid arthritis with rheumatoid factor of multiple sites without organ or systems involvement (principal); Z79.899 Other long term (current) drug therapy; E83.110 Hereditary hemochromatosis
CPT/HCPCS: 36415; 80053; 82248; 85025; 86140

== ENCOUNTER → 2023-10-17 08:54 | Outpatient (BNVA) | payer MEDICARE, MEDICAID, SELFPAY | PROVIDERS: PCP Family Medicine; Visit Provider Internal Medicine Rheumatology | DX: M05.79 Rheumatoid arthritis with rheumatoid factor of multiple sites without organ or systems involvement (principal); Z79.899 Other long term (current) drug therapy; Z71.89 Other specified counseling; M18.11 Unilateral primary osteoarthritis of first carpometacarpal joint, right hand | CPT/HCPCS: 99214 ==

== ENCOUNTER 2023-11-21 09:33 | Outpatient (CLI) | payer MEDICARE, MEDICAID, SELFPAY ==
--- NOTE | 2023-11-21 09:38 | CT_ITS ---
WS: [email or web address] LDCT LUNG CANCER SCREENING TECHNIQUE: Noncontrast CT of the chest with coronal and sagittal reformatted images. CLINICAL INFORMATION: HX OF TOBACCO USE COMPARISON: CT 11/19/2022 DLP: 107.31 mGy.cm DIvol: Mean CTDIvol: 2.20 (mGy),Mean CTDIvol: 4.20 (mGy) All CT scans at [facility] use at least one of these dose optimization techniques: automat ed exposure control; mA and/or kV adjustment per patient size (includes targeted exams where dose is matched to clinical indication); or iterative reconstruction. FINDINGS: Stable previously described subcentimeter nodules largest 7 mm RIGHT upper lobe posteriorly unchange d. No new suspicious pulmonary parenchymal opacities. Aortic calcification. Coronary calcification. No mediastinal or hilar lymphadenopathy. No axillary ly mphadenopathy. Right adrenal gland is normal. Stable LEFT adrenal adenoma. Cholecystectomy clips. Nor mal GE junction IMPRESSION: CT/CT lung screening [id number] LUNG-RADS: 2-Benign Appearance or Behavior FOLLOW UP: 12 Month: Continue annual screening with LDCT
== END 2023-11-21 09:34 | disposition home or self-care (01) ==
LOC: RAD 09:33
PROVIDERS: PCP Family Medicine; Visit Provider Family Medicine
DX: Z87.891 Personal history of nicotine dependence (principal); Z12.2 Encounter for screening for malignant neoplasm of respiratory organs; R91.8 Other nonspecific abnormal finding of lung field
CPT/HCPCS: 71271

== ENCOUNTER → 2023-12-14 15:11 | Outpatient (BNVA) | payer MEDICARE, MEDICAID, SELFPAY | PROVIDERS: PCP Family Medicine; Visit Provider Internal Medicine | DX: I25.118 Atherosclerotic heart disease of native coronary artery with other forms of angina pectoris (principal); E11.9 Type 2 diabetes mellitus without complications; M05.9 Rheumatoid arthritis with rheumatoid factor, unspecified; Z79.84 Long term (current) use of oral hypoglycemic drugs | CPT/HCPCS: 99214 ==

== ENCOUNTER 2024-01-10 08:21 | Outpatient (CLI) | payer MEDICARE, MEDICAID, SELFPAY ==
[2024-01-10 08:45] LABS: Basophils # 0.1 10^3/uL (0.0-0.1); Basophils % 0.8 %; Eosinophils # 0.4 10^3/uL (0.0-0.8); Eosinophils % 4.4 %; Hematocrit 39.8 % (36-47); Lymphocytes # 2.5 10^3/uL (0.8-4.8); Lymphocytes % 25.7 %; Mean Corpuscular HGB Conc 32.4 g/dL (30-55); Mean Corpuscular Hemoglobin 30.4 pg (27-33); Mean Corpuscular Volume 93.6 fl (85-98); Mean Platelet Volume 9.5 fL (7.4-10.4); Monocytes # 0.9 10^3/uL (0.2-0.9); Monocytes % 9.5 %; Neutrophils # 5.69 10^3/uL (1.8-7.7); Neutrophils % 59.3 %; Nucleated Red Blood Cells % 0 %; Platelet Count 237 10^3/cmm (157-399); Red Blood Count 4.25 10^6/uL (3.85-5.65); Red Cell Distribution Width 12.7 % (12.1-15.1); White Blood Count 9.59 10^3/uL (3.29-11.43)
[2024-01-10 09:04] LABS: Alanine Aminotransferase 17 U/L (0-33); Albumin Level 4.2 g/dL (3.5-5.2); Alkaline Phosphatase 71 U/L (35-105); Anion Gap 15.4 (5-19); Aspartate Amino Transferase 17 U/L (0-32); Blood Urea Nitrogen 12 mg/dL (8-23); Carbon Dioxide 25 mmol/L (22-29); Chloride 101 mmol/L (98-107); Globulin 3.1 g/dL (1.3-4.6); Glucose 172 mg/dL (65-115); Osmolality Calculated 288 mOsm/kg (285-295); Potassium 4.4 mmol/L (3.5-5.1); Sodium 137 mmol/L (136-145); Total Bilirubin 0.4 mg/dL (0.15-1.2); Total Protein 7.3 g/dL (6.6-8.7)
[2024-01-10 09:06] LABS: Alanine Aminotransferase 17 U/L (0-33); Albumin Level 4.3 g/dL (3.5-5.2); Alkaline Phosphatase 74 U/L (35-105); Aspartate Amino Transferase 16 U/L (0-32); Ferritin 18 ng/mL (15-150); Globulin 2.8 g/dL (1.3-4.6); Iron 62 ug/dL (37-145); Percent Saturation 13.7 % (20-50); Total Bilirubin 0.4 mg/dL (0.15-1.2); Total Iron Binding Capacity 451 mcg/dl; Total Protein 7.1 g/dL (6.6-8.7); Unsaturated Iron Binding 389 ug/dL (112-347)
[2024-01-10 09:44] LABS: Estmated Average Glucose 137; Hemoglobin A1C 6.4 % (4.0-6.0)
== END 2024-01-10 08:22 | disposition home or self-care (01) ==
PROVIDERS: Absent Provider Internal Medicine Rheumatology; Family Provider Family Medicine; PCP Family Medicine; Visit Provider Nurse Practitioner Family
DX: M05.79 Rheumatoid arthritis with rheumatoid factor of multiple sites without organ or systems involvement (principal); Z79.899 Other long term (current) drug therapy; E83.110 Hereditary hemochromatosis; E11.9 Type 2 diabetes mellitus without complications
CPT/HCPCS: 36415; 80053; 80076; 82565; 82728; 83036; 83540; 83550; 85025; 86140

== ENCOUNTER 2024-01-18 13:16 | Oncology outpatient (recurring) (ONCR) | payer MEDICARE, MEDICAID, SELFPAY | END 2024-01-27 23:59 | disposition home or self-care (01) | PROVIDERS: Family Provider Family Medicine; PCP Family Medicine; Visit Provider Internal Medicine Medical Oncology | DX: E83.110 Hereditary hemochromatosis (principal); Z79.899 Other long term (current) drug therapy | CPT/HCPCS: 99213 ==

== ENCOUNTER 2024-02-03 12:50 | Oncology outpatient (recurring) (ONCR) | payer MEDICARE, MEDICAID, SELFPAY ==
--- NOTE | 2024-02-03 12:58 | XR_ITS ---
WS: [email or web address] DEXA (DUAL ENERGY X-RAY ABSORPTIOMETRY) Bone mineral density was performed using a [employer] machine. HISTORY: POSTMENOPAUSAL OSTEOPOROSIS COMPARISON: None available. Lumbar spine BMD (L1-L4): 1.100 g/cm2 T score: -0.7 Z score: -0.2 Total hip BMD: Left: 0.948 g/cm2. T score: -0.5 Z score: -0.1 Right: 0.930 g/cm2. T score: -0.6 Z score: -0.2 10 year probability of a major osteoporotic fracture is 11%. XR/XR DEXA axial skeleton* [id number] IMPRESSION: NORMAL BONE MINERAL DENSITY based upon the WHO classification for females.
== END 2024-02-26 23:59 | disposition home or self-care (01) ==
LOC: RAD 12:52 → ONCMED 03-13 07:37
PROVIDERS: Family Provider Family Medicine; PCP Family Medicine; Visit Provider Internal Medicine Medical Oncology
DX: M81.0 Age-related osteoporosis without current pathological fracture
CPT/HCPCS: 77080

== ENCOUNTER → 2024-02-27 10:01 | Outpatient (BNVA) | payer MEDICARE, MEDICAID, SELFPAY | PROVIDERS: Family Provider Family Medicine; PCP Family Medicine; Visit Provider Internal Medicine Rheumatology | DX: M05.79 Rheumatoid arthritis with rheumatoid factor of multiple sites without organ or systems involvement (principal); M18.11 Unilateral primary osteoarthritis of first carpometacarpal joint, right hand; E83.110 Hereditary hemochromatosis; E11.8 Type 2 diabetes mellitus with unspecified complications; Z79.899 Other long term (current) drug therapy; Z71.85 Encounter for immunization safety counseling; Z98.890 Other specified postprocedural states | CPT/HCPCS: 73562; 99214 ==

== ENCOUNTER → 2024-05-17 09:31 | Outpatient (BNVA) | payer MEDICARE, MEDICAID, SELFPAY | PROVIDERS: Family Provider Family Medicine; PCP Family Medicine; Visit Provider Nurse Practitioner Family | DX: D48.5 Neoplasm of uncertain behavior of skin (principal); L81.4 Other melanin hyperpigmentation; D22.5 Melanocytic nevi of trunk; L85.3 Xerosis cutis; L57.8 Other skin changes due to chronic exposure to nonionizing radiation; L57.0 Actinic keratosis; I87.2 Venous insufficiency (chronic) (peripheral); Z85.828 Personal history of other malignant neoplasm of skin | CPT/HCPCS: 11102; 17000; 99213 ==

== ENCOUNTER → 2024-06-08 10:44 | Outpatient (BNVA) | payer MEDICARE, MEDICAID, SELFPAY | PROVIDERS: Family Provider Family Medicine; PCP Family Medicine; Visit Provider Dermatology | DX: D03.62 Melanoma in situ of left upper limb, including shoulder (principal) | CPT/HCPCS: 11603; 12034 ==

== ENCOUNTER 2024-06-19 08:15 | Outpatient (CLI) | payer MEDICARE, MEDICAID, SELFPAY ==
[2024-06-19 09:04] LABS: Basophils # 0.1 10^3/uL (0.0-0.1); Basophils % 1.1 %; Eosinophils # 0.3 10^3/uL (0.0-0.8); Eosinophils % 3.4 %; Hematocrit 39.7 % (36-47); Lymphocytes # 2.4 10^3/uL (0.8-4.8); Lymphocytes % 32.2 %; Mean Corpuscular Hemoglobin 27.9 pg (27-33); Mean Platelet Volume 10.2 fL (7.4-10.4); Monocytes # 0.7 10^3/uL (0.2-0.9); Monocytes % 8.9 %; Neutrophils # 3.99 10^3/uL (1.8-7.7); Neutrophils % 54.3 %; Nucleated Red Blood Cells % 0 %; Platelet Count 262 10^3/cmm (157-399); Red Blood Count 4.41 10^6/uL (3.85-5.65); Red Cell Distribution Width 13.2 % (12.1-15.1); White Blood Count 7.34 10^3/uL (3.29-11.43)
[2024-06-19 09:10] LABS: Estmated Average Glucose 146; Hemoglobin A1C 6.7 % (4.0-6.0)
[2024-06-19 09:14] LABS: Erythrocyte Sedimentation Rate 32 mm/hr (0-15)
[2024-06-19 09:21] LABS: Alanine Aminotransferase 16 U/L (0-33); Albumin Level 4.3 g/dL (3.5-5.2); Alkaline Phosphatase 66 U/L (35-105); Aspartate Amino Transferase 16 U/L (0-32); Globulin 2.7 g/dL (1.3-4.6); Glomerular Filtration Rate 71.8 mL/min (90-130); Iron 49 ug/dL (37-145); Percent Saturation 10.3 % (20-50); Total Bilirubin 0.4 mg/dL (0.15-1.2); Total Iron Binding Capacity 472 mcg/dl; Unsaturated Iron Binding 423 ug/dL (112-347)
[2024-06-19 09:23] LABS: Alanine Aminotransferase 16 U/L (0-33); Albumin Level 4.4 g/dL (3.5-5.2); Alkaline Phosphatase 65 U/L (35-105); Anion Gap 16.5 (5-19); Aspartate Amino Transferase 17 U/L (0-32); Blood Urea Nitrogen 14 mg/dL (8-23); Calcium 9.2 mg/dL (8.5-10.5); Carbon Dioxide 23 mmol/L (22-29); Chloride 102 mmol/L (98-107); Ferritin 11 ng/mL (15-150); Globulin 3.1 g/dL (1.3-4.6); Glomerular Filtration Rate 71.8 mL/min (90-130); Glucose 150 mg/dL (65-115); Osmolality Calculated 287 mOsm/kg (285-295); Potassium 4.5 mmol/L (3.5-5.1); Sodium 137 mmol/L (136-145); Total Bilirubin 0.4 mg/dL (0.15-1.2); Total Protein 7.5 g/dL (6.6-8.7)
[2024-06-19 09:35] LABS: Hepatitis B Core AB, Total Non-Reactive (Nonreactive); Hepatitis B Surface Antigen Non-Reactive (Nonreactive); Hepatitis C Virus Antibody Non-Reactive (Nonreactive)
== END 2024-06-19 08:16 | disposition home or self-care (01) ==
LOC: LAB 08:18
PROVIDERS: Absent Provider Internal Medicine; Family Provider Family Medicine; PCP Family Medicine; Visit Provider Internal Medicine Rheumatology
DX: M05.79 Rheumatoid arthritis with rheumatoid factor of multiple sites without organ or systems involvement (principal); Z79.899 Other long term (current) drug therapy; Z11.59 Encounter for screening for other viral diseases; Z11.1 Encounter for screening for respiratory tuberculosis; E11.9 Type 2 diabetes mellitus without complications; E83.110 Hereditary hemochromatosis
CPT/HCPCS: 36415; 80053; 80076; 82565; 82728; 83036; 83540; 83550; 85025; 85651; 86140; 86480; 86704; 86803; 87340

== ENCOUNTER → 2024-06-21 12:45 | Outpatient (BNVA) | payer MEDICARE, MEDICAID, SELFPAY | PROVIDERS: Family Provider Family Medicine; PCP Family Medicine; Visit Provider Dermatology | DX: D03.62 Melanoma in situ of left upper limb, including shoulder (principal) | CPT/HCPCS: 99213 ==

== ENCOUNTER 2024-07-20 08:52 | Oncology outpatient (recurring) (ONCR) | payer MEDICARE, MEDICAID, SELFPAY | END 2024-07-28 23:59 | disposition home or self-care (01) | PROVIDERS: Family Provider Family Medicine; PCP Family Medicine; Visit Provider Internal Medicine Hematology & Oncology | DX: E83.110 Hereditary hemochromatosis (principal); Z79.899 Other long term (current) drug therapy | CPT/HCPCS: 99213 ==

== ENCOUNTER → 2024-07-24 11:01 | Outpatient (BNVA) | payer MEDICARE, MEDICAID, SELFPAY | PROVIDERS: Family Provider Family Medicine; PCP Family Medicine; Visit Provider Internal Medicine Rheumatology | DX: M05.79 Rheumatoid arthritis with rheumatoid factor of multiple sites without organ or systems involvement (principal); Z79.899 Other long term (current) drug therapy; Z71.89 Other specified counseling; M18.11 Unilateral primary osteoarthritis of first carpometacarpal joint, right hand | CPT/HCPCS: 99214 ==

== ENCOUNTER 2024-08-01 07:53 | Outpatient (CLI) | payer MEDICARE, MEDICAID, SELFPAY ==
--- NOTE | 2024-08-01 07:55 | MM_ITS ---
WS: [email or web address] BILATERAL SCREENING DIGITAL TOMOSYNTHESIS MAMMOGRAM WITH CAD HISTORY: SCREENING COMPARISON: 09/05/2020 Bilateral CC and MLO views with tomosynthesis and synthetic mammography submitted. Computer aided det ection analyzed. Breast composition: There are scattered areas of fibroglandular density. No suspicious masses, microc alcifications or architectural distortion. There are a few scattered benign calcifications in each br east. MM/MM scr BI tomosynthesis [id number] IMPRESSION: BI-RADS: 2 - Benign. FOLLOW UP: 1 Year Follow-up
== END 2024-08-01 07:54 | disposition home or self-care (01) ==
LOC: RAD 07:54
PROVIDERS: Family Provider Family Medicine; PCP Family Medicine; Visit Provider Family Medicine
DX: Z12.31 Encounter for screening mammogram for malignant neoplasm of breast (principal); R92.323 Mammographic fibroglandular density, bilateral breasts; R92.1 Mammographic calcification found on diagnostic imaging of breast
CPT/HCPCS: 77063; 77067

== ENCOUNTER → 2024-09-11 09:50 | Outpatient (BNVA) | payer MEDICARE, MEDICAID, SELFPAY | PROVIDERS: Family Provider Family Medicine; PCP Family Medicine; Visit Provider Nurse Practitioner Family | DX: L81.4 Other melanin hyperpigmentation (principal); D22.5 Melanocytic nevi of trunk; Z85.820 Personal history of malignant melanoma of skin; Z08 Encounter for follow-up examination after completed treatment for malignant neoplasm; Z85.828 Personal history of other malignant neoplasm of skin | CPT/HCPCS: 99213 ==

== ENCOUNTER 2024-10-15 11:04 | Oncology outpatient (recurring) (ONCR) | payer MEDICARE, MEDICAID, SELFPAY ==
[2024-10-08 09:09] LABS: Basophils # 0.1 10^3/uL (0.0-0.1); Basophils % 1.1 %; Eosinophils # 0.3 10^3/uL (0.0-0.8); Eosinophils % 3.7 %; Hematocrit 36.7 % (36-47); Lymphocytes # 2.1 10^3/uL (0.8-4.8); Lymphocytes % 27.6 %; Mean Corpuscular HGB Conc 30.8 g/dL (30-55); Mean Corpuscular Hemoglobin 27.6 pg (27-33); Mean Corpuscular Volume 89.5 fl (85-98); Mean Platelet Volume 9.5 fL (7.4-10.4); Monocytes # 0.6 10^3/uL (0.2-0.9); Monocytes % 8.5 %; Neutrophils # 4.42 10^3/uL (1.8-7.7); Neutrophils % 58.7 %; Nucleated Red Blood Cells % 0 %; Platelet Count 236 10^3/cmm (157-399); Red Cell Distribution Width 13.9 % (12.1-15.1); White Blood Count 7.53 10^3/uL (3.29-11.43)
[2024-10-08 09:26] LABS: Alanine Aminotransferase 14 U/L (0-33); Albumin Level 4.2 g/dL (3.5-5.2); Alkaline Phosphatase 64 U/L (35-105); Anion Gap 15.4 (5-19); Aspartate Amino Transferase 15 U/L (0-32); Blood Urea Nitrogen 14 mg/dL (8-23); Calcium 9.6 mg/dL (8.5-10.5); Carbon Dioxide 27 mmol/L (22-29); Chloride 101 mmol/L (98-107); Ferritin 11 ng/mL (15-150); Globulin 2.9 g/dL (1.3-4.6); Glucose 194 mg/dL (65-115); Iron 54 ug/dL (37-145); Osmolality Calculated 294 mOsm/kg (285-295); Percent Saturation 13.5 % (20-50); Potassium 4.4 mmol/L (3.5-5.1); Sodium 139 mmol/L (136-145); Total Bilirubin 0.3 mg/dL (0.15-1.2); Total Iron Binding Capacity 398 mcg/dl; Total Protein 7.1 g/dL (6.6-8.7); Unsaturated Iron Binding 344 ug/dL (112-347)
== END 2024-10-26 23:59 | disposition home or self-care (01) ==
PROVIDERS: Internal Medicine Medical Oncology; Family Provider Family Medicine; PCP Family Medicine; Visit Provider Internal Medicine Hematology & Oncology
DX: E83.110 Hereditary hemochromatosis (principal); D64.9 Anemia, unspecified; Z87.891 Personal history of nicotine dependence; Z79.899 Other long term (current) drug therapy
CPT/HCPCS: 36415; 80053; 82728; 83540; 83550; 85025; 99214

== ENCOUNTER 2024-10-25 08:41 | Outpatient (CLI) | payer MEDICARE, MEDICAID, SELFPAY ==
--- NOTE | 2024-10-25 09:00 | US_ITS ---
WS: [email or web address] RIGHT UPPER QUADRANT ULTRASOUND HISTORY: iron overload COMPARISON: 05/18/2012 Liver: 16.0 cm in length. Liver is normal size. Very mild coarse echotexture. No mass or intrahepatic duct dilatation. Portal Vein: Normal hepatopetal flow with monophasic waveform. Gallbladder: Prior cholecystectomy. CBD: 0.3 cm Pancreas: Partially visualized. No abnormality identified. Right kidney: 9.6 cm in length. Normal size and echogenicity. No hydronephrosis or mass. Aorta and IVC: Unremarkable abdominal aorta and IVC. No ascites. US/US liver [id number] IMPRESSION: 1. Prior cholecystectomy. 2. Normal size liver. 3. Very mild coarse echotexture throughout the liver. Nonspecific may be relat ed to hepatic steatosis. Ultrasound is nonspecific for hemachromatosis.
== END 2024-10-25 08:42 | disposition home or self-care (01) ==
PROVIDERS: Family Provider Family Medicine; PCP Family Medicine; Visit Provider Internal Medicine Medical Oncology
DX: E83.110 Hereditary hemochromatosis (principal); Z90.49 Acquired absence of other specified parts of digestive tract; R93.2 Abnormal findings on diagnostic imaging of liver and biliary tract
CPT/HCPCS: 76705

== ENCOUNTER → 2024-11-22 09:28 | Outpatient (BNVA) | payer MEDICARE, MEDICAID, SELFPAY | PROVIDERS: Family Provider Family Medicine; PCP Family Medicine; Visit Provider Internal Medicine Rheumatology | DX: M05.79 Rheumatoid arthritis with rheumatoid factor of multiple sites without organ or systems involvement (principal); Z79.899 Other long term (current) drug therapy; Z71.89 Other specified counseling; M18.11 Unilateral primary osteoarthritis of first carpometacarpal joint, right hand | CPT/HCPCS: 99214 ==

== ENCOUNTER → 2024-11-28 12:46 | Outpatient (BNVA) | payer MEDICARE, MEDICAID, SELFPAY | PROVIDERS: Family Provider Family Medicine; PCP Family Medicine; Visit Provider Nurse Practitioner Family | DX: L81.4 Other melanin hyperpigmentation (principal); D22.5 Melanocytic nevi of trunk; L57.8 Other skin changes due to chronic exposure to nonionizing radiation; Z85.820 Personal history of malignant melanoma of skin; Z08 Encounter for follow-up examination after completed treatment for malignant neoplasm; Z85.828 Personal history of other malignant neoplasm of skin | CPT/HCPCS: 99213 ==

== ENCOUNTER → 2024-12-12 13:53 | Outpatient (BNVA) | payer MEDICARE, MEDICAID, SELFPAY | PROVIDERS: Family Provider Family Medicine; PCP Family Medicine; Visit Provider Internal Medicine | DX: I25.10 Atherosclerotic heart disease of native coronary artery without angina pectoris (principal); Z87.891 Personal history of nicotine dependence | CPT/HCPCS: 99213 ==

== ENCOUNTER 2024-12-20 09:57 | Outpatient (CLI) | payer OTHER, MEDICAID, SELFPAY ==
--- NOTE | 2024-12-20 10:00 | CT_ITS ---
WS: [email or web address] LDCT LUNG CANCER SCREENING TECHNIQUE: Noncontrast CT of the chest with coronal and sagittal reformatted images. CLINICAL INFORMATION: HISTORY OF TOBACCO USE COMPARISON: 2023 DLP: 93.51 mGy.cm DIvol: Mean CTDIvol: 2.30 (mGy) All CT scans at [facility] use at least one of these dose optimization techniques: automated exposure control; mA and/or kV adjustment per patient size (includes targeted exams where dose is matched to clinical indication); or iterative reconstruction. FINDINGS: Previously described subcentimeter nodules are stable in appearance. Largest nodule RIGHT lower lobe measuring 7 mm is unchanged. Aortic calcification. Coronary calcification. No mediastinal or hilar lymphadenopathy. No axillary lymphadenopathy. Right adrenal gland is normal. Stable LEFT adrenal adenoma. Cholecystectomy clips. Normal GE junction. Mild thoracic curve and kyphosis. CT/CT lung screening [id number] IMPRESSION: LUNG-RADS: 2-Benign Appearance or Behavior FOLLOW UP: 12 Month: Continue annual screening with LDCT
== END 2024-12-20 09:58 | disposition home or self-care (01) ==
LOC: RAD 09:59
PROVIDERS: Family Provider Family Medicine; PCP Family Medicine; Visit Provider Family Medicine
DX: Z12.2 Encounter for screening for malignant neoplasm of respiratory organs (principal); Z87.891 Personal history of nicotine dependence; R91.8 Other nonspecific abnormal finding of lung field; I70.0 Atherosclerosis of aorta; I25.10 Atherosclerotic heart disease of native coronary artery without angina pectoris; D35.02 Benign neoplasm of left adrenal gland; Z90.49 Acquired absence of other specified parts of digestive tract; M43.8X4 Other specified deforming dorsopathies, thoracic region; M40.294 Other kyphosis, thoracic region
CPT/HCPCS: 71271

== ENCOUNTER 2025-01-07 08:20 | Outpatient (CLI) | payer OTHER, MEDICAID, SELFPAY ==
[2025-01-07 10:31] LABS: Basophils # 0.1 10^3/uL (0.0-0.1); Basophils % 0.9 %; Eosinophils # 0.5 10^3/uL (0.0-0.8); Eosinophils % 4.7 %; Hematocrit 40.9 % (36-47); Lymphocytes # 2.1 10^3/uL (0.8-4.8); Mean Corpuscular HGB Conc 30.8 g/dL (30-55); Mean Corpuscular Hemoglobin 28.1 pg (27-33); Mean Corpuscular Volume 91.1 fl (85-98); Mean Platelet Volume 9.7 fL (7.4-10.4); Monocytes % 9.2 %; Neutrophils # 6.69 10^3/uL (1.8-7.7); Neutrophils % 64.9 %; Nucleated Red Blood Cells % 0 %; Platelet Count 262 10^3/cmm (157-399); Red Blood Count 4.49 10^6/uL (3.85-5.65); Red Cell Distribution Width 14.6 % (12.1-15.1)
[2025-01-07 10:39] LABS: Erythrocyte Sedimentation Rate 16 mm/hr (0-15)
[2025-01-07 10:40] LABS: Estmated Average Glucose 140; Hemoglobin A1C 6.5 % (4.0-6.0)
[2025-01-07 11:01] LABS: Creatinine Urine, Random 164 mg/dL (28-217); Microalbum Creatinine Ratio Ur 6 mg/dL (0-20); Microalbumin Random Urine 1 ug/dL (0-20)
[2025-01-07 11:17] LABS: Alanine Aminotransferase 13 U/L (0-33); Albumin Level 4.4 g/dL (3.5-5.2); Alkaline Phosphatase 78 U/L (35-105); Anion Gap 18.2 (5-19); Aspartate Amino Transferase 18 U/L (0-32); Blood Urea Nitrogen 11 mg/dL (8-23); Calcium 9.5 mg/dL (8.5-10.5); Carbon Dioxide 27 mmol/L (22-29); Chloride 100 mmol/L (98-107); Chol HDL Ratio 2.92 mg/dL (0.0-4.40); Cholesterol 175 mg/dL (0-200); Ferritin 17 ng/mL (15-150); Globulin 3.3 g/dL (1.3-4.6); Glomerular Filtration Rate 83.7 mL/min (90-130); Glucose 125 mg/dL (65-115); HDL Cholesterol 60 mg/dL (60-100); Iron 55 ug/dL (37-145); LDL Cholesterol Calculated 97 mg/dL (50-129); LDL HDL Ratio 1.62 RATIO (0.00-3.22); Osmolality Calculated 293 mOsm/kg (285-295); Percent Saturation 12.6 % (20-50); Potassium 4.2 mmol/L (3.5-5.1); Sodium 141 mmol/L (136-145); Thyroid Stimulating Hormone 1.85 uIU/mL (0.27-4.20); Total Bilirubin 0.3 mg/dL (0.15-1.2); Total Iron Binding Capacity 436 mcg/dl; Total Protein 7.7 g/dL (6.6-8.7); Triglycerides 92 mg/dL (0-150); Unsaturated Iron Binding 381 ug/dL (112-347)
[2025-01-07 12:11] LABS: Free T4 Free Thyroxine 1.39 ng/dL (0.82-1.77); Tumor Marker Alpha Fetoprotein 1.8 ng/mL (0-8.3)
== END 2025-01-07 08:21 | disposition home or self-care (01) ==
LOC: LAB 09:07
PROVIDERS: PCP Family Medicine; Referring Provider Internal Medicine Rheumatology; Visit Provider Internal Medicine Medical Oncology
DX: E11.9 Type 2 diabetes mellitus without complications (principal); E83.110 Hereditary hemochromatosis; M05.9 Rheumatoid arthritis with rheumatoid factor, unspecified; Z79.899 Other long term (current) drug therapy; E78.5 Hyperlipidemia, unspecified; E03.9 Hypothyroidism, unspecified
CPT/HCPCS: 36415; 80053; 80061; 82044; 82105; 82248; 82728; 83036; 83540; 83550; 84439; 84443; 85025; 85651; 86140

== ENCOUNTER 2025-01-14 10:27 | Oncology outpatient (recurring) (ONCR) | payer OTHER, MEDICAID, SELFPAY | END 2025-01-26 23:59 | disposition home or self-care (01) | PROVIDERS: PCP Family Medicine; Visit Provider Internal Medicine Medical Oncology | DX: E83.110 Hereditary hemochromatosis (principal); R03.0 Elevated blood-pressure reading, without diagnosis of hypertension; Z87.891 Personal history of nicotine dependence; Z79.899 Other long term (current) drug therapy | CPT/HCPCS: 99214 ==

== ENCOUNTER → 2025-02-25 13:36 | Outpatient (BNVA) | payer MEDICARE, MEDICAID, SELFPAY | PROVIDERS: Family Provider Family Medicine; PCP Family Medicine; Visit Provider Nurse Practitioner Family | DX: I87.2 Venous insufficiency (chronic) (peripheral) (principal); L81.4 Other melanin hyperpigmentation; L57.8 Other skin changes due to chronic exposure to nonionizing radiation; D22.5 Melanocytic nevi of trunk; Z85.820 Personal history of malignant melanoma of skin; L57.0 Actinic keratosis | CPT/HCPCS: 17000; 99213 ==

== ENCOUNTER → 2025-03-07 10:28 | Outpatient (BNVA) | payer MEDICARE, MEDICAID, SELFPAY | PROVIDERS: Family Provider Family Medicine; PCP Family Medicine; Visit Provider Internal Medicine Rheumatology | DX: M05.79 Rheumatoid arthritis with rheumatoid factor of multiple sites without organ or systems involvement (principal); Z79.899 Other long term (current) drug therapy; Z71.85 Encounter for immunization safety counseling; M18.11 Unilateral primary osteoarthritis of first carpometacarpal joint, right hand | CPT/HCPCS: 36415; 80076; 82306; 82565; 85025; 85651; 86140; 86480; 99214 ==

== ENCOUNTER 2025-04-08 08:14 | Outpatient (CLI) | payer MEDICARE, MEDICAID, SELFPAY ==
[2025-04-08 09:15] LABS: Hematocrit 38.9 % (36-47); Hemoglobin 12.40 g/dL (11.27-16.99); Mean Corpuscular HGB Conc 31.9 g/dL (30-55); Mean Corpuscular Hemoglobin 28.4 pg (27-33); Mean Corpuscular Volume 89.2 fl (85-98); Nucleated Red Blood Cells % 0 %; Platelet Count 245 10^3/cmm (157-399); Red Blood Count 4.36 10^6/uL (3.85-5.65); White Blood Count 9.13 10^3/uL (3.29-11.43)
[2025-04-08 09:29] LABS: Alanine Aminotransferase 10 U/L (0-33); Albumin Level 4.0 g/dL (3.5-5.2); Alkaline Phosphatase 76 U/L (35-105); Aspartate Amino Transferase 13 U/L (0-32); Globulin 3.3 g/dL (1.3-4.6); Total Protein 7.3 g/dL (6.6-8.7)
[2025-04-08 09:33] LABS: Estmated Average Glucose 143; Hemoglobin A1C 6.6 % (4.0-6.0)
== END 2025-04-08 08:15 | disposition home or self-care (01) ==
LOC: LAB 08:18
PROVIDERS: Family Provider Internal Medicine Rheumatology; PCP Family Medicine; Visit Provider Internal Medicine Medical Oncology
DX: E11.9 Type 2 diabetes mellitus without complications (principal); Z79.899 Other long term (current) drug therapy
CPT/HCPCS: 80076; 82565; 83036; 85025; 85651; 86140

== ENCOUNTER 2025-04-15 11:35 | Oncology outpatient (recurring) (ONCR) | payer OTHER, MEDICAID, SELFPAY ==
[2025-04-15 12:10] LABS: Hematocrit 36.3 % (36-47); Hemoglobin 11.80 g/dL (11.27-16.99); Mean Corpuscular HGB Conc 32.5 g/dL (30-55); Mean Corpuscular Hemoglobin 29.3 pg (27-33); Mean Corpuscular Volume 90.1 fl (85-98); Nucleated Red Blood Cells % 0 %; Platelet Count 233 10^3/cmm (157-399); Red Blood Count 4.03 10^6/uL (3.85-5.65); White Blood Count 8.80 10^3/uL (3.29-11.43)
[2025-04-15 12:39] LABS: Alanine Aminotransferase 12 U/L (0-33); Albumin Level 4.0 g/dL (3.5-5.2); Alkaline Phosphatase 77 U/L (35-105); Anion Gap 14.7 (5-19); Aspartate Amino Transferase 15 U/L (0-32); Blood Urea Nitrogen 11 mg/dL (8-23); Calcium 9.4 mg/dL (8.5-10.5); Carbon Dioxide 26 mmol/L (22-29); Chloride 98 mmol/L (98-107); Creatinine Clr Calc Pharmacy 87.5478; Ferritin 16 ng/mL (15-150); Globulin 3.2 g/dL (1.3-4.6); Glucose 86 mg/dL (65-115); Iron 61 ug/dL (37-145); Osmolality Calculated 277 mOsm/kg (285-295); Potassium 4.7 mmol/L (3.5-5.1); Sodium 134 mmol/L (136-145); Total Iron Binding Capacity 362 mcg/dl; Total Protein 7.2 g/dL (6.6-8.7); Unsaturated Iron Binding 301 ug/dL (112-347)
== END 2025-04-28 23:59 | disposition home or self-care (01) ==
PROVIDERS: Nurse Practitioner Family; Family Provider Internal Medicine Rheumatology; PCP Family Medicine; Visit Provider Internal Medicine Medical Oncology
DX: E83.110 Hereditary hemochromatosis (principal); R03.0 Elevated blood-pressure reading, without diagnosis of hypertension; Z87.891 Personal history of nicotine dependence; Z79.899 Other long term (current) drug therapy
CPT/HCPCS: 36415; 80053; 82306; 82728; 83540; 83550; 85025; 99214

== ENCOUNTER → 2025-07-02 15:08 | Outpatient (BNVA) | payer OTHER, MEDICAID, SELFPAY | PROVIDERS: Family Provider Internal Medicine Rheumatology; PCP Family Medicine; Visit Provider Nurse Practitioner Family | DX: L81.4 Other melanin hyperpigmentation (principal); L57.8 Other skin changes due to chronic exposure to nonionizing radiation; D18.01 Hemangioma of skin and subcutaneous tissue; Z85.820 Personal history of malignant melanoma of skin; Z08 Encounter for follow-up examination after completed treatment for malignant neoplasm; Z85.828 Personal history of other malignant neoplasm of skin | CPT/HCPCS: 99213 ==

== ENCOUNTER 2025-07-09 07:47 | Outpatient (CLI) | payer OTHER, MEDICAID, SELFPAY ==
[2025-07-09 08:31] LABS: Hematocrit 38.8 % (36-47); Hemoglobin 12.90 g/dL (11.27-16.99); Mean Corpuscular HGB Conc 33.2 g/dL (30-55); Mean Corpuscular Hemoglobin 30.5 pg (27-33); Mean Corpuscular Volume 91.7 fl (85-98); Nucleated Red Blood Cells % 0 %; Platelet Count 264 10^3/cmm (157-399); Red Blood Count 4.23 10^6/uL (3.85-5.65); White Blood Count 9.11 10^3/uL (3.29-11.43)
[2025-07-09 08:52] LABS: Alanine Aminotransferase < 5 U/L (0-33); Albumin Level 4.2 g/dL (3.5-5.2); Alkaline Phosphatase 74 U/L (35-105); Aspartate Amino Transferase 16 U/L (0-32); Globulin 3.2 g/dL (1.3-4.6); Total Protein 7.4 g/dL (6.6-8.7)
[2025-07-09 09:01] LABS: Estmated Average Glucose 126; Hemoglobin A1C 6.0 % (4.0-6.0)
== END 2025-07-09 07:48 | disposition home or self-care (01) ==
PROVIDERS: Family Provider Internal Medicine Rheumatology; PCP Family Medicine; Visit Provider Internal Medicine
DX: M05.79 Rheumatoid arthritis with rheumatoid factor of multiple sites without organ or systems involvement (principal); Z79.899 Other long term (current) drug therapy; E11.39 Type 2 diabetes mellitus with other diabetic ophthalmic complication
CPT/HCPCS: 36415; 80076; 82565; 83036; 85025; 85651; 86140

== ENCOUNTER 2025-07-15 12:47 | Oncology outpatient (recurring) (ONCR) | payer MEDICARE, MEDICAID, SELFPAY ==
[2025-07-12 10:45] LABS: Hematocrit 37.4 % (36-47); Hemoglobin 12.40 g/dL (11.27-16.99); Mean Corpuscular HGB Conc 33.2 g/dL (30-55); Mean Corpuscular Hemoglobin 30.0 pg (27-33); Mean Corpuscular Volume 90.3 fl (85-98); Nucleated Red Blood Cells % 0 %; Platelet Count 262 10^3/cmm (157-399); Red Blood Count 4.14 10^6/uL (3.85-5.65); White Blood Count 10.02 10^3/uL (3.29-11.43)
[2025-07-12 11:05] LABS: Alanine Aminotransferase 12 U/L (0-33); Albumin Level 4.2 g/dL (3.5-5.2); Alkaline Phosphatase 79 U/L (35-105); Anion Gap 17.5 (5-19); Aspartate Amino Transferase 16 U/L (0-32); Blood Urea Nitrogen 9 mg/dL (8-23); Calcium 9.2 mg/dL (8.5-10.5); Carbon Dioxide 24 mmol/L (22-29); Chloride 101 mmol/L (98-107); Ferritin 19 ng/mL (15-150); Globulin 3.2 g/dL (1.3-4.6); Glucose 138 mg/dL (65-115); Iron 70 ug/dL (37-145); Osmolality Calculated 287 mOsm/kg (285-295); Potassium 4.5 mmol/L (3.5-5.1); Sodium 138 mmol/L (136-145); Total Iron Binding Capacity 391 mcg/dl; Total Protein 7.4 g/dL (6.6-8.7); Unsaturated Iron Binding 321 ug/dL (112-347)
== END 2025-07-28 23:59 | disposition home or self-care (01) ==
PROVIDERS: Nurse Practitioner Family; Family Provider Internal Medicine Rheumatology; PCP Family Medicine; Visit Provider Internal Medicine Medical Oncology
DX: E83.110 Hereditary hemochromatosis (principal); R03.0 Elevated blood-pressure reading, without diagnosis of hypertension; M25.561 Pain in right knee; Z87.891 Personal history of nicotine dependence; Z79.899 Other long term (current) drug therapy
CPT/HCPCS: 36415; 80053; 82306; 82728; 83540; 83550; 85025; 99213

== ENCOUNTER → 2025-07-30 13:58 | Outpatient (BNVA) | payer MEDICARE, MEDICAID, SELFPAY | PROVIDERS: Family Provider Internal Medicine Rheumatology; PCP Family Medicine; Visit Provider Internal Medicine Rheumatology | DX: M05.79 Rheumatoid arthritis with rheumatoid factor of multiple sites without organ or systems involvement (principal); Z79.899 Other long term (current) drug therapy; Z71.85 Encounter for immunization safety counseling; M18.11 Unilateral primary osteoarthritis of first carpometacarpal joint, right hand | CPT/HCPCS: 99214 ==

== ENCOUNTER 2025-08-02 09:18 | Outpatient (CLI) | payer MEDICARE, MEDICAID, SELFPAY ==
--- NOTE | 2025-08-02 09:25 | MM_ITS ---
WS: [email or web address] BILATERAL 3D TOMOSYNTHESIS DIGITAL SCREENING MAMMOGRAPHY WITH CAD CLINICAL INFORMATION: SCREENING HISTORY: Screening mammogram. No current complaints. COMPARISON: 2023 TECHNIQUE: Bilateral CC and MLO views. FINDINGS: Scattered fibroglandular densities bilaterally. No suspicious focal mass, asymmetry, calcifications, or architectural distortion. No evidence of malignancy. Incidental punctate calcifications. MM/MM [facility] tomosynthesis [id number] IMPRESSION: DENSITY: There are scattered areas of fibroglandular density. BI-RADS: 2 - Benign. FOLLOW UP: 1 Year Follow-up Recommend return to annual screening mammography.
== END 2025-08-02 09:19 | disposition home or self-care (01) ==
LOC: RAD 09:19
PROVIDERS: Family Provider Internal Medicine Rheumatology; PCP Family Medicine; Visit Provider Family Medicine
DX: Z12.31 Encounter for screening mammogram for malignant neoplasm of breast (principal); R92.323 Mammographic fibroglandular density, bilateral breasts
CPT/HCPCS: 77063; 77067